=== PATIENT | female | born 1975 | race Hispanic/Latino ===

== ENCOUNTER 2017-05-11 11:38 | Emergency (ER) | payer SELFPAY ==
[2017-05-11] MEDS ORDERED: Ketorolac Tromethamine 30 MG/ML VIAL ONE (13:43)
[2017-05-11] MEDS ORDERED: Metoclopramide HCl 10 MG/2 ML VIAL ONE (13:43)
[2017-05-11 13:44] LABS: #Basophils 0.1 thou/uL (0.0-0.2); #Eosinphils 0.2 thou/uL (0.0-0.7); #Lymphocytes 3.4 thou/uL (1.20-3.40); #Monocytes 0.9 thou/uL (0.11-0.59); #Neutrophils 6.9 thou/uL (1.40-6.50); %Basophils 0.9 % (0.0-1.0); %Eosinophils 1.8 % (0.0-10.0); %Lymphocytes 29.3 % (21.0-51.0); %Monocytes 7.8 % (0.0-10.0); Hematocrit 39.9 % (36.0-47.0); Mean Platelet Volume 7.4 fL (7.4-10.4); Red Blood Cell (RBC) Count 4.48 mill/uL (4.20-5.40); White Blood Cell (WBC) Count 11.5 thou/uL (4.8-10.8)
[2017-05-11 14:20] LABS: Anion Gap 12 mmol/L (10-20); BUN (Urea Nitrogen) 12 mg/dL (7.0-18.7); Calc. Creatinine Clearance 0 mL/min (70-130); Calcium 9.4 mg/dL (7.8-10.44); Carbon Dioxide 24 mmol/L (22-29); Chloride 101 mmol/L (98-107); Estimated GFR-MDRD Greater than 90
== END 2017-05-11 15:26 | disposition home or self-care (01) ==
LOC: ERS 11:38
DX: R51 Headache (principal); E11.65 Type 2 diabetes mellitus with hyperglycemia; J45.909 Unspecified asthma, uncomplicated
CPT/HCPCS: 80048; 82010; 85025; 96365; 96375; J1885; J2765

== ENCOUNTER 2017-05-21 18:17 | Emergency (ER) | payer SELFPAY ==
[2017-05-21 18:50] LABS: #Basophils 0.1 thou/uL (0.0-0.2); #Eosinphils 0.5 thou/uL (0.0-0.7); #Monocytes 0.9 thou/uL (0.11-0.59); %Basophils 0.8 % (0.0-1.0); %Eosinophils 4.7 % (0.0-10.0); %Lymphocytes 28.4 % (21.0-51.0); %Monocytes 8.9 % (0.0-10.0); Mean Platelet Volume 7.4 fL (7.4-10.4); Red Blood Cell (RBC) Count 4.42 mill/uL (4.20-5.40); White Blood Cell (WBC) Count 10.6 thou/uL (4.8-10.8)
[2017-05-21 18:58] LABS: PTT 26.1 SEC (22.9-36.1); Prothrombin Time 13.2 SEC (12.0-14.7)
[2017-05-21] MEDS ORDERED: Nitroglycerin 2% Ointment 1 INCH/1 GM Packet ONE (18:58)
[2017-05-21 19:08] LABS: Troponin I Less than 0.010 ng/mL (< 0.028)
[2017-05-21 19:11] LABS: ALT (SGPT) 15 U/L (8-55); AST (SGOT) 12 U/L (5-34); Alkaline Phosphatase 60 U/L (40-150); Anion Gap 13 mmol/L (10-20); BUN (Urea Nitrogen) 9 mg/dL (7.0-18.7); Bilirubin, Total 0.3 mg/dL (0.2-1.2); CK (CPK) 43 U/L (29-168); Calc. Creatinine Clearance 0 mL/min (70-130); Calcium 8.9 mg/dL (7.8-10.44); Carbon Dioxide 20 mmol/L (22-29); Chloride 104 mmol/L (98-107); Estimated GFR-MDRD Greater than 90; Globulin 3.4 g/dL (2.4-3.5); Lipase 14 U/L (8-78); Protein, Total 7.1 g/dL (6.0-8.3)
--- NOTE | 2017-05-21 19:51 | RAD ---
AP VIEW OF THE CHEST 05/21/17 INDICATION: Shortness of breath and chest pain. IMPRESSION: No acute cardiopulmonary abnormality. The examination is not appreciably changed from the comparison dated 07/09/16. POS: [facility]
--- NOTE | 2017-07-11 12:08 | EKG ---
Test Reason : Blood Pressure : / mmHG Vent. Rate : 090 BPM Atrial Rate : 090 BPM P-R Int : 124 ms QRS Dur : 100 ms QT Int : 372 ms P-R-T Axes : 025 -37 000 degrees QTc Int : 455 ms Normal sinus rhythm Left axis deviation Abnormal ECG Confirmed by KAMALA BALLESTEROS MD ([id number]), newspaper editor managing HONORIO MAYA ([id number]) on 07/11/2017 12:08:01 PM Referred By: Confirmed By:KAMALA BALLESTEROS MD
== END 2017-05-21 19:59 | disposition home or self-care (01) ==
LOC: SCSER 18:17
DX: J11.1 Influenza due to unidentified influenza virus with other respiratory manifestations (principal); E11.9 Type 2 diabetes mellitus without complications; J45.909 Unspecified asthma, uncomplicated
CPT/HCPCS: 71010; 80053; 82550; 82553; 83690; 84484; 85025; 85610; 85730; 93005

== ENCOUNTER 2017-06-30 12:58 | Emergency (ER) | payer SELFPAY | END 2017-06-30 13:09 | disposition left against medical advice (07) | LOC: ERS 12:58 | DX: Z53.21 Procedure and treatment not carried out due to patient leaving prior to being seen by health care provider (principal) | CPT/HCPCS: 36416 ==

== ENCOUNTER 2017-06-30 17:05 | Emergency (ER) | payer SELFPAY | END 2017-06-30 19:47 | disposition home or self-care (01) | LOC: ERS 17:05 | DX: E11.65 Type 2 diabetes mellitus with hyperglycemia (principal); J45.909 Unspecified asthma, uncomplicated | CPT/HCPCS: 36416; 99284 ==

== ENCOUNTER 2017-07-18 20:27 | Emergency (ER) | payer SELFPAY ==
[2017-07-18] MEDS ORDERED: Acetaminophen 500 MG TAB ONE (21:03)
[2017-07-18] MEDS ORDERED: Ketorolac Tromethamine 30 MG/ML VIAL ONE (21:42)
[2017-07-18] MEDS ORDERED: Ondansetron HCl/PF 4 MG/2 ML Vial ONE (21:42)
[2017-07-18 22:01] LABS: #Eosinphils 0.3 thou/uL (0.0-0.7); #Lymphocytes 1.2 thou/uL (1.20-3.40); #Monocytes 0.9 thou/uL (0.11-0.59); #Neutrophils 5.4 thou/uL (1.40-6.50); %Basophils 0.3 % (0.0-1.0); %Eosinophils 3.3 % (0.0-10.0); %Lymphocytes 15.4 % (21.0-51.0); %Monocytes 11.9 % (0.0-10.0); Hemoglobin 11.9 g/dL (12.0-16.0); Mean Corpuscular HGB CONC 33.6 g/dL (32.0-36.0); Mean Corpuscular Hemoglobin 29.9 pg (27.0-31.0); Mean Platelet Volume 6.8 fL (7.4-10.4); Platelet Count 284 thou/uL (130-400); RBC Distribution Width 12.2 % (11.5-14.5); Red Blood Cell (RBC) Count 3.99 mill/uL (4.20-5.40); White Blood Cell (WBC) Count 7.8 thou/uL (4.8-10.8)
[2017-07-18 22:39] LABS: ALT (SGPT) 20 U/L (8-55); AST (SGOT) 23 U/L (5-34); Albumin 3.5 g/dL (3.5-5.0); Alkaline Phosphatase 54 U/L (40-150); Anion Gap 14 mmol/L (10-20); BUN (Urea Nitrogen) 11 mg/dL (7.0-18.7); Bilirubin, Total 0.3 mg/dL (0.2-1.2); CK (CPK) 47 U/L (29-168); Calc. Creatinine Clearance 0 mL/min (70-130); Calcium 8.8 mg/dL (7.8-10.44); Carbon Dioxide 20 mmol/L (22-29); Chloride 101 mmol/L (98-107); Estimated GFR-MDRD 90; Glucose 219 mg/dL (70-105); Lipase 12 U/L (8-78); Potassium 4.5 mmol/L (3.5-5.1); Protein, Total 7.5 g/dL (6.0-8.3); Sodium 130 mmol/L (136-145)
[2017-07-18 23:17] LABS: Bilirubin Negative (Negative); Blood, Urine Small (Negative); Clarity CLEAR (Clear); Glucose, Urine (Dipstick) >=1000 mg/dL (Negative); Leukocyte Negative (Negative); Nitrite Negative (Negative); Pregnancy Test - Urine (BHCG) Negative (Negative); Pregu Control Background? CLEAR/WHITE (CLR/WHITE); Pregu Control Bar Appear? YES (CONTROL BAR); Protein, Urine (Dipstick) Trace mg/dL (Neg-Trace); Specific Gravity 1.035 (1.002-1.036); Specific Gravity, Urine 1.035 (1.002-1.036)
[2017-07-18 23:18] LABS: Bacteria/HPF Rare-Few HPF (None Seen); Hyaline Casts/LPF 0-3 HYALINE CAST LPF (0-3 Hyaline); Pathc Cast-AUWi Flag 0.13 (0-2.49); WBC/HPF 0-3 HPF (0-3)
== END 2017-07-19 00:13 | disposition home or self-care (01) ==
LOC: ERS 20:27
DX: J11.1 Influenza due to unidentified influenza virus with other respiratory manifestations (principal); J45.909 Unspecified asthma, uncomplicated; E11.9 Type 2 diabetes mellitus without complications
CPT/HCPCS: 80053; 81003; 81015; 81025; 82010; 82550; 83690; 85025; 87804; 96361; 96374; 96375; J1885; J2405

== ENCOUNTER 2017-08-23 12:36 | Emergency (ER) | payer MEDICAID, SELFPAY ==
[2017-08-23] MEDS ORDERED: HYDROcodone/Acetaminophen 5/325 mg Tablet ONE (13:24)
== END 2017-08-23 13:32 | disposition home or self-care (01) ==
LOC: SCSER 12:36
DX: G89.29 Other chronic pain (principal); M54.5 Low back pain; E78.5 Hyperlipidemia, unspecified; E11.9 Type 2 diabetes mellitus without complications; J45.909 Unspecified asthma, uncomplicated; Z79.84 Long term (current) use of oral hypoglycemic drugs; Z79.899 Other long term (current) drug therapy
CPT/HCPCS: 99283

== ENCOUNTER 2017-12-29 18:00 | Emergency (ER) | payer SELFPAY ==
--- NOTE | 2017-12-29 18:51 | ULT ---
VENOUS DOPPLER ULTRASOUND OF THE LEFT LOWER EXTREMITY: 12/29/17 HISTORY: Left lower leg pain. TECHNIQUE: Hurst scale, color flow and spectral doppler imaging of the deep venous system of the left lower extre mity is performed. FINDINGS: There is good flow, compression, and augmentation noted in the left common femoral, femoral, deep fem oral, popliteal, posterior tibial, and greater saphenous veins. IMPRESSION: No evidence of DVT in the left lower extremity. POS: [facility]
[2017-12-29] MEDS ORDERED: HYDROcodone/Acetaminophen 10/325 mg Tablet ONE (18:55)
== END 2017-12-29 20:05 | disposition home or self-care (01) ==
LOC: ERS 18:00
DX: M79.662 Pain in left lower leg (principal); E78.5 Hyperlipidemia, unspecified; E11.9 Type 2 diabetes mellitus without complications; J45.909 Unspecified asthma, uncomplicated; Z79.84 Long term (current) use of oral hypoglycemic drugs

== ENCOUNTER 2018-03-18 10:00 | Inpatient (IN) | payer OTHER ==
[2018-03-18 13:33] VITALS: BMI 38.6
[2018-03-23] MEDS ORDERED: Lidocaine 0.5%/Epinephrine 1:200,000 50 ml Vial ONE (06:29)
[2018-03-23] MEDS ORDERED: Bupivacaine HCl 0.5%/Epinephrine 1:200,000/PF 30 ml Vial ONE (06:29)
[2018-03-23] MEDS ORDERED: CEFAZOLIN/Water 2 GM/20 ML SYRINGE ONE (06:53)
[2018-03-23] MEDS ORDERED: CeleCOXIB 100 MG CAP ONE (06:53)
[2018-03-23] MEDS ORDERED: Gabapentin 300 MG CAP ONE (06:53)
[2018-03-23] MEDS ORDERED: Famotidine/PF 20 mg/2ml Vial ONE (06:53)
[2018-03-23] MEDS ORDERED: Midazolam HCl 2 mg/2 ml Vial ONE ×2 (07:04→07:17)
[2018-03-23] MEDS ORDERED: Fentanyl 100 MCG/2 ML VIAL ONE (07:04)
[2018-03-23] MEDS ORDERED: HYDROmorphone 2 MG/ML VIAL ONE (07:04)
[2018-03-23] MEDS ORDERED: Promethazine HCl 25 MG/ML VIAL ONE (07:05)
[2018-03-23] MEDS ORDERED: Insulin Regular 300 UNITS/3 ML VIAL ONE ×2 (07:24→07:26)
[2018-03-23] MEDS ORDERED: Lidocaine 1% w/Epinephrine 1:100K 30 ML VIAL ONE (09:17)
[2018-03-23] MEDS ORDERED: Morphine 4 MG/ML VIAL SLOW IVP PRN (10:37)
[2018-03-23] MEDS ORDERED: Zolpidem Tartrate 5 MG TAB PO PRN (10:37)
[2018-03-23] MEDS ORDERED: Ondansetron HCl/PF 4 MG/2 ML Vial IVP PRN (10:37)
[2018-03-23] MEDS ORDERED: Bisacodyl 10 MG SUPP PR PRN (10:37)
[2018-03-23] MEDS ORDERED: Dextrose 5% in Water 1,000 ML IV PRN (10:37)
[2018-03-23] MEDS ORDERED: diphenhydrAMINE 25 MG CAP PO PRN (10:37)
[2018-03-23] MEDS ORDERED: Dextrose 50% Abboject 50 ML SYRINGE SLOW IVP PRN (10:37)
[2018-03-23] MEDS ORDERED: Promethazine HCl 25 MG/ML VIAL IM PRN (10:37)
[2018-03-23] MEDS ORDERED: traMADol HCl 50 MG TAB PO PRN (10:37)
[2018-03-23] MEDS: Lactated Ringer's 1,000 ML IV SCH (12:16)
[2018-03-23] MEDS: Ketorolac Tromethamine 30 MG/ML VIAL IVP SCH ×3 (12:38→23:33)
[2018-03-23] MEDS: HumaLOG 300 UNITS/3 ML VIAL SC PRN ×3 (12:38→21:36)
[2018-03-23] MEDS ORDERED: Glycopyrrolate 0.2 MG/ML 5 ML SYRINGE ONE (13:37)
[2018-03-23] MEDS ORDERED: PHENYLEPHRINE-NS 100 MCG/ML 10 ML SYRINGE ONE (13:37)
[2018-03-23] MEDS ORDERED: Ondansetron HCl/PF 4 MG/2 ML Vial ONE (13:37)
[2018-03-23] MEDS ORDERED: ePHEDrine/0.9% NaCl/PF SYRINGE 50 mg/10 ml ONE (13:37)
[2018-03-23] MEDS ORDERED: Metoprolol Tartrate 5 MG/5 ML VIAL ONE (13:37)
[2018-03-23] MEDS ORDERED: Dexamethasone 20 MG/5 ML VIAL ONE (13:37)
[2018-03-23] MEDS ORDERED: PROPOFOL 200 MG/20 ML VIAL ONE (13:37)
[2018-03-23] MEDS ORDERED: Lidocaine 1% PF 5 ML VIAL ONE (13:37)
--- NOTE | 2018-03-23 13:42 | OP ---
DATE OF OPERATION: 03/23/2018 PREOPERATIVE DIAGNOSES: 1. Menorrhagia. 2. Dysmenorrhea. 3. Endometrial mass. 4. Incomplete uterovaginal prolapse. 5. Rectocele. POSTOPERATIVE DIAGNOSES: 1. Menorrhagia. 2. Dysmenorrhea. 3. Endometrial mass. 4. Incomplete uterovaginal prolapse. 5. Rectocele. PROCEDURE: Robotic assisted total laparoscopic hysterectomy, bilateral salpingectomy, vaginal vault suspension, posterior colporrhaphy and cystoscopy. ATTENDING SURGEON: Nadeen Marcelo M.D. BEHAVIORAL SCIENCES INSTRUCTOR: Dorothea Garcia M.D. ANESTHESIA: General endotracheal. ESTIMATED BLOOD LOSS: 100 mL. INTRAVENOUS FLUIDS: 1200 mL crystalloid. URINE OUTPUT: 250 mL of clear urine. COMPLICATIONS: None. DRAINS: Rm catheter. PATHOLOGY: Uterus, cervix, bilateral fallopian tubes. FINDINGS: A mobile 12-week sized uterus sounded to 10 cm. No uterine masses on intraabdominal surve y. The cervix were normal appearing, fallopian tubes and ovaries were normal appearing bilaterally. On cystoscopy, there were no intravesicular masses, lacerations or suture material. The ureters wer e noted to efflux vigorously bilaterally. The urethra was noted to be within normal limits. OPERATIVE TECHNIQUE: The patient was taken to the operating room where general anesthesia was obtain ed without difficulty. The patient was prepped and draped in a sterile fashion in the dorsal lithoto my position. A Rm catheter was placed in the bladder. A speculum was placed in the vagina and th e anterior lip of the cervix was grasped with a single tooth tenaculum. The uterus then sounded to 1 0 cm and the REVA manipulator was assembled with a 10 cm tip and a 4 cm colpotomizer ring. The manip ulator tip was inserted to the uterine fundus. The balloon was inflated. Instruments were removed o ut of the vagina and the colpotomizer ring was advanced to fit snugly around the cervix and the vagin al occluder balloon was inflated. Legs were placed in low lithotomy. Attention was turned to the ab domen. 0.5% Marcaine with epinephrine was infiltrated into the umbilicus, a 12 mm skin incision was made in the umbilicus. Veress needle was passed into the abdomen initially noting opening pressures. Second and third attempts were performed with increased abdominal wall tenting. The patient had a t hick anterior abdominal wall. On the third pass of the Veress needle the opening pressure was noted to be 4 mmHg and pneumoperitoneum was obtained without difficulty at that time. The 12 mm trocar wa s passed into the abdomen and confirmed placement with the robotic camera. Steep Trendelenburg was o btained. The right and left 8 mm lower quadrant robotic trocars were placed after infiltrating with 0.5% Marcaine with epinephrine under direct visualization. A left upper quadrant and 11 mm transportation assistant port was also placed under direct visualization after infiltrating with 0.5% Marcaine with epinephri ne. The robot was then docked, the right robotic arm contained monopolar scissors, left robotic arm contained a fenestrated bipolar. The surgeon console then took control and the right fallopian tube was grasped and elevated. The mes osalpinx was cauterized with the fenestrated and transected with the scissors. At that time, the pne umoperitoneum was being lost. The gas was noted to slip off of the trocar. However, the trocar had also slid out of the fascia. At that time, the instruments were removed out of the abdomen. The cam era was removed out of the abdomen as well and the camera port was undocked. It was noted that the p ort was slightly too short for docking and due to the width of the anterior abdominal wall, therefore , the longer trocar was placed and a 5 mm camera was assembled and the trocar placement was observed directly using the camera through the transportation assistant port and the camera was then redocked and replaced b ack into the abdomen. At that time, the remainder of the mesosalpinx was cauterized and transected u ntil the medial portion was met. This was clamped across, cauterized, transected and removed out of the abdomen. The utero-ovarian was cauterized x2 widths of the fenestrated and then transected with the scissors and cautery and transection was carried down to the level of the mid round ligament. Th e round ligament was cauterized, transected and opened up the anterior and posterior leaf of the broa d ligament. The posterior leaf of the broad ligament was undermined and dropped down to the level of the uterosacral. The anterior leaf of the broad ligament was also incised down to the level of the bladder flap. The retroperitoneum was then dissected off of the vessels laterally and the vessels we re skeletonized with the scissors on cautery. The bladder flap was then created and the vesicouterin e peritoneum was incised and the adventitial fibers were dissected off bluntly with the back end of t he scissors as well as sharply with the scissors on cautery. Attention was turned to the patient's l eft side where the left fallopian tube was grasped and elevated. The mesosalpinx was cauterized and transected sequentially until the medial portion was met. The fallopian tube was then clamped across in the medial portion and cauterized and transected and removed out of the abdomen. The utero-ovari an was cauterized x2 with of the fenestrated and transected in the midportion with the scissors. Thi s cautery and transected was sequentially carried down to the mid portion of the round ligament and t he mesovarium was incised. The round ligament was cauterized and transected and the posterior leaf w as dropped down after undermining with the fenestrated. The anterior leaf of the broad ligament was also dropped down to the level of the incision from the contralateral side. The retroperitoneum was dissected through to allow the ureter to drop away and the vessels to be skeletonized and adequately visualized. At that time, the pubocervical fascia was scored with the scissors and further dissectio n of the bladder down below the level of the colpotomizer and was performed until the bladder was rosita en down below the level of the colpotomizer ring. The anterior colpotomy was then performed and chaudhry ied around to the vascular pedicles. The posterior colpotomy was also performed. At that time, the right uterine artery was clamped and cauterized multiple times and then it was incised. Several oozi ng edges on the vaginal cuff were also cauterized with the fenestrated. The left uterine pedicle was then clamped and cauterized and incised and hemostasis was noted. The uterus was then removed into the vagina. Irrigation of the cuff was performed and hemostasis was achieved with the fenestrated. The scissors were traded out for the needle pizza delivery driver and the cuff was closed with a #2-0 barbed Strataf ix suture in a running fashion incorporating vaginal mucosa in each bite and posterior peritoneum. T his was run back for several sutures and closure was noted to be excellent. At that time, the uterus was then used to manipulate the top of the vaginal cuff and highlight the uterosacral ligaments. On ce these were identified an 0 Ethibond was used to plicate the uterosacral ligaments with one stitch through the distal two-thirds, middle two-thirds and then through the anterior and the posterior vagi nal cuff incorporating the pubocervical fascia. This was then tied down and taut. This was performe d bilaterally and plication was noted to be excellent. The ureters were noted during this time later al to the uterosacral suspension and the releasing incisions previously made in the case were to prev ent kinking of the ureters. At that time, irrigation was again performed, low pressure check was per formed. Hemostasis was noted to be excellent. All instruments were removed out of the abdomen. The fascia of the umbilical port was closed with an 0 Vicryl in [id number] fashion. The skin was c losed with 4-0 Monocryl in a subcuticular fashion. Dermabond was applied. Attention was turned to t he vagina where the Rm catheter was removed out of the bladder. The 70 degree cystoscope was asse mbled and inserted into the bladder, immediately noting there were no foreign objects, masses or any trauma or laceration to the bladder. The ureters, immediately were noted to efflux bilaterally direc tly observing both the right and left ureters effluxing clear urine. The cystoscope was then removed and the Rm catheter was replaced. The cystocele had resolved with the vault suspension and there fore the posterior colporrhaphy was begun. The introitus was grasped with Allis clamps at approximat wendy 4 and 7 o'clock and the posterior vaginal mucosa was infiltrated with 1% lidocaine with epinephri ne. The Metzenbaums were used to incise the introitus and undermine the vaginal mucosa posteriorly a nd then incise in the midline. Allis clamps were placed on the incision edges on both sides and used to pull traction. The Metzenbaums were then used to dissect the rectovaginal fascia off of the vagi nal mucosa as well as a fluffed out Ray-Reinaldo bluntly. Hemostasis was achieved with the Bovie. A rect al exam was performed and fascial defects were noted and grasped with Allis clamps. These fascial de fects were then approximated with a 2-0 Vicryl in a [id number] fashion and the fascia was plicat ed in the midline along the entire length of the rectocele to reinforce support over the rectal wall. At that time, perineorrhaphy was also performed and this included using the Bovie to incise on the perineum and remove some of the skin. The superficial transverse perineal muscles were then plicated in the midline with 2-0 Vicryl in a U-stitch. The vaginal mucosal incision was then closed with an 0 Vicryl in a nqgboq-ob-wiltu fashion with excellent hemostasis noted. Vaginal packing was placed an d all instruments were removed out of the vagina. The patient tolerated procedure well. Sponge, lap and needle counts were correct x2. The patient was taken to recovery in stable condition. Patient received Ancef 2 grams prior to the procedure.
[2018-03-23] MEDS: Simethicone Chewable 80 MG TAB PO PRN (13:52)
[2018-03-23] MEDS: traMADol HCl 50 MG TAB PO PRN (13:52)
[2018-03-23] MEDS: Acetaminophen 1,000 MG in Premix Bag 1 BAG IVPB SCH ×3 (15:07→21:27)
[2018-03-23] MEDS: metFORMIN 500 MG TAB PO SCH (16:11)
[2018-03-23] MEDS: Docusate Calcium (SURFAK) 240 MG CAP PO SCH (21:27)
[2018-03-23] MEDS: Gabapentin 300 MG CAP PO SCH (21:27)
[2018-03-24] MEDS: Lactated Ringer's 1,000 ML IV SCH (01:20)
[2018-03-24] MEDS: traMADol HCl 50 MG TAB PO PRN ×2 (03:43→11:48)
[2018-03-24] MEDS: Acetaminophen 1,000 MG in Premix Bag 1 BAG IVPB SCH (03:44)
[2018-03-24] MEDS: Ketorolac Tromethamine 30 MG/ML VIAL IVP SCH (06:06)
[2018-03-24 06:22] LABS: Hemoglobin 10.8 g/dL (12.0-16.0); Mean Corpuscular HGB CONC 33.1 g/dL (32.0-36.0); Mean Corpuscular Hemoglobin 29.2 pg (27.0-31.0); Mean Corpuscular Volume 88.4 fL (78.0-98.0); Mean Platelet Volume 7.5 fL (7.4-10.4); Platelet Count 286 thou/uL (130-400); RBC Distribution Width 12.6 % (11.5-14.5)
[2018-03-24] MEDS ORDERED: Ibuprofen 800 MG TAB PO SCH (07:00)
[2018-03-24] MEDS ORDERED: Glimepiride 1 MG TAB PO SCH (10:45)
[2018-03-24] MEDS: Gabapentin 300 MG CAP PO SCH ×2 (11:48→20:43)
[2018-03-24] MEDS: Docusate Calcium (SURFAK) 240 MG CAP PO SCH ×2 (11:49→20:44)
[2018-03-24] MEDS: metFORMIN 500 MG TAB PO SCH ×2 (11:53→20:43)
[2018-03-24] MEDS: Ibuprofen 800 MG TAB PO SCH ×2 (15:32→23:56)
[2018-03-24] MEDS: Glimepiride 1 MG TAB PO SCH (15:33)
[2018-03-24] MEDS: Acetaminophen 500 MG TAB PO SCH ×2 (15:45→19:46)
[2018-03-24] MEDS ORDERED: HYDROcodone/Acetaminophen 5/325 mg Tablet PO PRN ×2 (17:26→17:27)
--- NOTE | 2018-03-24 22:27 | PRG ---
DATE OF SERVICE: 03/24/2018 TIME OF VISIT: 0800 a.m. SUBJECTIVE: Patient reports pain is controlled this morning currently, 5/10 has tolerated tramadol i n overnight received IV Ofirmev and Toradol. She is tolerating a regular diet. She has yet to ambul ate or void. She denies any nausea, vomiting, shortness of breath, or chest pain. OBJECTIVE: VITAL SIGNS: Temperature 97.6, pulse 72, respirations 20, blood pressure 137/84, pulse ox 99% on charity m air. GENERAL: No acute distress. HEART: Regular rate and rhythm. LUNGS: Clear to auscultation bilaterally. ABDOMEN: Soft, nondistended, appropriately tender. Incisions clean, dry, and intact. EXTREMITIES: No edema, cyanosis, or clubbing. LABORATORY DATA: Hemoglobin 10.8, hematocrit 32.7, platelets 286. Accu-Cheks 317, 325, 219, 335. ASSESSMENT AND PLAN: This is a 42-year-old status post robotic-assisted total laparoscopic hysterect yazmin, vaginal-vault suspension, posterior colporrhaphy, and cystoscopy. Postoperative day #1, patient 's vital signs are within normal limits. She is afebrile. This morning, she will have voiding trial to ensure adequate bladder emptying. Her vaginal packing is out. Her pain is being managed on tram adol and IV Toradol and Ofirmev. She will be transitioned to p.o. Motrin, p.o. Tylenol, and tramadol . She is to ambulate in home and instructed on deep breathing exercises as well as an incentive spir ometer. Later in the day, the nurses called at approximately 1600 stating the patient's pain was unc ontrolled with the current medications and her blood sugar was elevated in the 300s. She was started on glimepiride in addition to her home metformin, as her sliding scale was discontinued in preparati on for discharge. We will monitor the patient overnight in terms of pain control and blood sugars an d likely discharge in the morning. She did pass her second-voiding trial and has had adequate urine output.
[2018-03-25] MEDS: Acetaminophen 500 MG TAB PO SCH ×3 (01:57→14:49)
[2018-03-25] MEDS: Glimepiride 1 MG TAB PO SCH ×2 (09:00→09:01)
[2018-03-25] MEDS: Ibuprofen 800 MG TAB PO SCH ×2 (09:01→14:48)
[2018-03-25] MEDS: Docusate Calcium (SURFAK) 240 MG CAP PO SCH (09:01)
[2018-03-25] MEDS: metFORMIN 500 MG TAB PO SCH (09:01)
[2018-03-25] MEDS: traMADol HCl 50 MG TAB PO PRN ×2 (09:04→14:48)
[2018-03-25] MEDS: Simethicone Chewable 80 MG TAB PO PRN (09:05)
[2018-03-25] MEDS ORDERED: Glimepiride 1 MG TAB PO SCH (10:10)
[2018-03-25] MEDS: Gabapentin 300 MG CAP PO SCH (14:47)
[2018-03-25 16:38] VITALS: BP 151/74; TEMP 97.5
--- NOTE | 2018-03-26 13:01 | DIS ---
DATE OF ADMISSION: 03/23/2018 DATE OF DISCHARGE: 03/25/2018 ADMISSION DIAGNOSES: 1. Pelvic pain. 2. Menorrhagia. 3. Pelvic organ prolapse. 4. Type 2 diabetes, uncontrolled. 5. Morbid obesity. DISCHARGE DIAGNOSES: Status post robotic-assisted total laparoscopic hysterectomy, vaginal vault leroy pension, posterior colporrhaphy, and cystoscopy; type 2 diabetes, uncontrolled; morbid obesity. DISCHARGE CONDITION: Stable. ATTENDING PHYSICIAN: Nadeen Marcelo MD CONSULTATIONS: None. PROCEDURES: Please see discharge diagnoses. HISTORY AND PHYSICAL: Please see previously dictated H&P. HOSPITAL COURSE: A 42-year-old presented to the hospital to undergo scheduled surgery as listed abov e. The patient had an uncomplicated surgery with an estimated blood loss of 100 mL. Postoperatively , she went to the floor with Rm catheter and vaginal packing in place. She was able to tolerate a regular diet on postoperative day 0. Her pain was initially controlled on IV Toradol and Ofirmev an d p.r.n. tramadol. She was transitioned to oral medications on postoperative day 1 including ibuprof en, Tylenol, and tramadol. Her pain was somewhat uncontrolled later in the day on postoperative day 1 and she was given a dose of Assumption, which helped. She did not require any further Assumption doses and c ontinued the tramadol. She had a voiding trial on postoperative day 1, where her bladder was backfil led and she was allowed to void; however, the patient did not immediately get up and voided several h ours after this backfilling, and she was in retention of over 400 mL of urine on her postvoid residua l. Therefore, she was allowed another attempt at voiding and postvoid residual, which the amount was approximately 150. This was performed once again on the 3rd void, and the amount was around the yuni e and retention of less than 30% of total volume was noted. Therefore, the catheter remained out and the patient felt that she was emptying her bladder completely. Her vaginal packing was removed. Fernie jacobsen only had vaginal spotting and she was explained this was normal. She had postoperative hemoglobin of 10.8, hematocrit 32.7; had no symptoms of anemia. Her vital signs are within normal limits. Her blood sugars were uncontrolled and on initial presentation to day surgery was in the 300s. She was i nitially managed with a sliding scale and then restarted on her home metformin. The patient has diff iculty obtaining care and being seen at [facility]; however, since her blood sugars were uncontro lled and we were wanting to control them better secondary to risk for postoperative complications, fernie jacobsen was started on glimepiride 1 mg during her hospital stay. This did improve her blood sugars and he r fasting on postoperative day 2 was 189. She will continue this on discharge. She had no nausea, v omiting. She was able to ambulate without difficulty. Her pain was controlled on postoperative day 2 and she was dispositioned for home at that time. Her final pathology is pending at the time of dis charge and she was given discharge medications including tramadol, ibuprofen, glimepiride, and metfor min. She will follow up with me in 2 weeks postoperative time.
== END 2018-03-25 17:48 | disposition home or self-care (01) | DRG 743 ==
LOC: SURG A 03-23 06:09 → 3SE 03-23 11:25
PROVIDERS: ADMIT Student in an Organized Health Care Education/Training Program; ATTEND Student in an Organized Health Care Education/Training Program
PROC: 0UT94ZZ Resection of Uterus, Percutaneous Endoscopic Approach (ICD-10-PCS; principal; 2018-03-23)
PROC: 0UT74ZZ Resection of Bilateral Fallopian Tubes, Percutaneous Endoscopic Approach (ICD-10-PCS; 2018-03-23)
PROC: 8E0W4CZ Robotic Assisted Procedure of Trunk Region, Percutaneous Endoscopic Approach (ICD-10-PCS; 2018-03-23)
PROC: 0JQC3ZZ Repair Pelvic Region Subcutaneous Tissue and Fascia, Percutaneous Approach (ICD-10-PCS; 2018-03-23)
DX: N92.0 Excessive and frequent menstruation with regular cycle (principal); N85.8 Other specified noninflammatory disorders of uterus; N81.4 Uterovaginal prolapse, unspecified; N81.10 Cystocele, unspecified; N81.6 Rectocele; N94.6 Dysmenorrhea, unspecified; N81.2 Incomplete uterovaginal prolapse
CPT/HCPCS: 36415; 36416; 85027; 88307; J0131; J0670; J1100; J1170; J1815; J1885; J2001; J2250; J2405; J2550; J2704; J3010; S0028

== ENCOUNTER 2018-03-18 12:40 | Outpatient (CLI) | payer OTHER ==
[2018-03-18 15:21] LABS: BHCG - Serum Negative (NEGATIVE); Hemoglobin 12.5 g/dL (12.0-16.0); Mean Corpuscular HGB CONC 34.2 g/dL (32.0-36.0); Mean Corpuscular Hemoglobin 29.6 pg (27.0-31.0); Mean Corpuscular Volume 86.7 fL (78.0-98.0); Mean Platelet Volume 7.1 fL (7.4-10.4); Platelet Count 278 thou/uL (130-400); Pregs Control Background? CLEAR/WHITE (CLR/WHITE); Pregs Control Bar Appear? YES (CONTROL BAR); RBC Distribution Width 12.6 % (11.5-14.5); Red Blood Cell (RBC) Count 4.23 mill/uL (4.20-5.40); White Blood Cell (WBC) Count 9.8 thou/uL (4.8-10.8)
[2018-03-18 15:38] LABS: Anion Gap 13 mmol/L (10-20); BUN (Urea Nitrogen) 11 mg/dL (7.0-18.7); Calc. Creatinine Clearance 0 mL/min (70-130); Calcium 8.5 mg/dL (7.8-10.44); Carbon Dioxide 19 mmol/L (22-29); Chloride 106 mmol/L (98-107); Estimated GFR-MDRD 90; Glucose 249 mg/dL (70-105); Potassium 3.9 mmol/L (3.5-5.1); Sodium 134 mmol/L (136-145)
== END 2018-03-18 12:41 | disposition home or self-care (01) ==
LOC: LABBT 12:40
PROVIDERS: ATTEND Student in an Organized Health Care Education/Training Program
DX: Z01.812 Encounter for preprocedural laboratory examination (principal); N92.1 Excessive and frequent menstruation with irregular cycle; N81.4 Uterovaginal prolapse, unspecified
CPT/HCPCS: 80048; 84703; 85027; 86850; 86900; 86901

== ENCOUNTER 2018-05-03 18:11 | Emergency (ER) | payer SELFPAY ==
[2018-05-03] MEDS ORDERED: Metoclopramide HCl 10 MG/2 ML VIAL ONE (19:24)
[2018-05-03] MEDS ORDERED: Ketorolac Tromethamine 30 MG/ML VIAL ONE (19:24)
[2018-05-03] MEDS ORDERED: diphenhydrAMINE 12.5 MG/5 ML UDCUP ONE (19:24)
[2018-05-03] MEDS ORDERED: diphenhydrAMINE 50 MG/ML VIAL IVP ONE (19:45)
[2018-05-03] MEDS ORDERED: Magnesium 2 GM/50 ML BAG (IN WATER) ONE (20:36)
[2018-05-03] MEDS ORDERED: methylPREDNISolone Sod Succ/PF 125 MG/2 ML VIAL ONE (20:36)
[2018-05-03] MEDS ORDERED: Water For Inject, Bacteriostat 30 ML ONE (20:37)
== END 2018-05-03 21:42 | disposition home or self-care (01) ==
LOC: ERS 18:11
DX: R51 Headache (principal); E78.5 Hyperlipidemia, unspecified; E11.9 Type 2 diabetes mellitus without complications; J45.909 Unspecified asthma, uncomplicated; Z79.84 Long term (current) use of oral hypoglycemic drugs; Z79.899 Other long term (current) drug therapy
CPT/HCPCS: 96365; 96366; 96375; J1200; J1885; J2765; J2930

== ENCOUNTER 2018-06-19 06:24 | Emergency (ER) | payer SELFPAY ==
--- NOTE | 2018-06-19 07:48 | RAD ---
RIGHT SHOULDER 3 VIEWS: Date: 06/19/18 INDICATION: 42-year-old female with history of trauma, status post mechanical fall. COMPARISON: None. IMPRESSION: No acute fracture or subluxation. Visualized right lung is clear. POS: [facility]
--- NOTE | 2018-06-19 07:55 | RAD ---
RIGHT ELBOW 2 VIEWS: Date: 06/19/18 INDICATION: History of mechanical fall with right elbow pain; trauma. IMPRESSION: No acute fracture or subluxation is evident. No joint capsular distention is noted. Radiocapitellar a lignment appears within normal limits. POS: [facility]
== END 2018-06-19 07:32 | disposition home or self-care (01) ==
LOC: ERS 06:24
DX: M79.605 Pain in left leg (principal); M79.601 Pain in right arm; E11.9 Type 2 diabetes mellitus without complications; E78.5 Hyperlipidemia, unspecified; J45.909 Unspecified asthma, uncomplicated; F17.200 Nicotine dependence, unspecified, uncomplicated; Z79.84 Long term (current) use of oral hypoglycemic drugs; W18.2XXA Fall in (into) shower or empty bathtub, initial encounter

== ENCOUNTER 2018-06-29 17:37 | Emergency (ER) | payer SELFPAY ==
[2018-06-29 18:24] LABS: Bilirubin Negative (Negative); Blood, Urine Negative (Negative); Clarity CLEAR (Clear); Glucose, Urine (Dipstick) >=1000 mg/dL (Negative); Leukocyte Negative (Negative); Nitrite Negative (Negative); Protein, Urine (Dipstick) Negative (Neg-Trace); Specific Gravity, Urine 1.043 (1.002-1.036); Urobilinogen 0.2 mg/dL (0.2-1.0); pH, Urine 5.5 (5.0-9.0)
[2018-06-29 18:32] LABS: #Basophils 0.1 thou/uL (0.0-0.2); #Eosinphils 0.4 thou/uL (0.0-0.7); #Lymphocytes 3.8 thou/uL (1.20-3.40); #Monocytes 0.9 thou/uL (0.11-0.59); #Neutrophils 8.4 thou/uL (1.40-6.50); %Basophils 0.5 % (0.0-1.0); %Lymphocytes 27.9 % (21.0-51.0); %Monocytes 6.8 % (0.0-10.0); %Neutrophils 61.9 % (42.0-75.0); Hemoglobin 12.3 g/dL (12.0-16.0); Mean Corpuscular HGB CONC 32.7 g/dL (32.0-36.0); Mean Corpuscular Hemoglobin 27.3 pg (27.0-31.0); Mean Corpuscular Volume 83.5 fL (78.0-98.0); Mean Platelet Volume 7.6 fL (7.4-10.4); Platelet Count 314 thou/uL (130-400); RBC Distribution Width 13.4 % (11.5-14.5); Red Blood Cell (RBC) Count 4.49 mill/uL (4.20-5.40); White Blood Cell (WBC) Count 13.6 thou/uL (4.8-10.8)
[2018-06-29] MEDS ORDERED: Ketorolac Tromethamine 30 MG/ML VIAL ONE (18:52)
[2018-06-29 18:53] LABS: ALT (SGPT) 11 U/L (8-55); AST (SGOT) 12 U/L (5-34); Albumin 3.2 g/dL (3.5-5.0); Alkaline Phosphatase 63 U/L (40-150); Anion Gap 13 mmol/L (10-20); BUN (Urea Nitrogen) 15 mg/dL (7.0-18.7); Bilirubin, Total 0.2 mg/dL (0.2-1.2); Calc. Creatinine Clearance 0 mL/min (70-130); Calcium 8.7 mg/dL (7.8-10.44); Carbon Dioxide 19 mmol/L (22-29); Chloride 103 mmol/L (98-107); Estimated GFR-MDRD Greater than 90; Globulin 3.5 g/dL (2.4-3.5); Glucose 322 mg/dL (70-105); Magnesium 1.6 mg/dL (1.6-2.6); Potassium 4.1 mmol/L (3.5-5.1); Protein, Total 6.7 g/dL (6.0-8.3); Sodium 131 mmol/L (136-145)
[2018-06-29] MEDS ORDERED: Clindamycin/D5W 900 mg/50 ml Premix Bag ONE (19:06)
[2018-06-29] MEDS ORDERED: Clindamycin/D5W 600 mg/50 ml Premix Bag ONE (19:09)
--- NOTE | 2018-06-29 21:01 | RAD ---
CHEST ONE VIEW: 06/29/18 HISTORY: 42-year-old female with history of abscess to right labia for four days. COMPARISON: 05/21/17. Heart size is normal. The lungs are clear. IMPRESSION: No acute intrathoracic disease. Stable from prior study. POS: [facility]
--- NOTE | 2018-07-03 13:40 | EKG ---
Test Reason : Blood Pressure : / mmHG Vent. Rate : 106 BPM Atrial Rate : 106 BPM P-R Int : 140 ms QRS Dur : 106 ms QT Int : 362 ms P-R-T Axes : 043 -42 002 degrees QTc Int : 480 ms Sinus tachycardia Left axis deviation Septal infarct , age undetermined Abnormal ECG Confirmed by DIONNA AYERS DO ([id number]), publishing editor THOMPSON CRUM ([id number]) on 07/03/2018 1:39:36 PM Referred By: Confirmed By:DIONNA AYERS DO
== END 2018-06-29 20:19 | disposition home or self-care (01) ==
LOC: ERS 17:37
DX: N76.4 Abscess of vulva (principal); E11.65 Type 2 diabetes mellitus with hyperglycemia; E78.5 Hyperlipidemia, unspecified; Z79.84 Long term (current) use of oral hypoglycemic drugs; J45.909 Unspecified asthma, uncomplicated
CPT/HCPCS: 36416; 71045; 80053; 81003; 82010; 83605; 83735; 85025; 87040; 87077; 87086; 93005; 96361; 96365; 96375; J1885; J3490

== ENCOUNTER 2018-07-07 09:45 | Emergency (ER) | payer SELFPAY ==
[2018-07-07] MEDS ORDERED: Lidocaine 1% w/Epinephrine 1:100K 20 ML VIAL ONE (10:19)
[2018-07-07] MEDS ORDERED: cefTRIAXone\\ROCEPHIN 2 GM VIAL ONE (10:19)
[2018-07-07 10:43] LABS: #Eosinphils 0.3 thou/uL (0.0-0.7); #Lymphocytes 2.6 thou/uL (1.20-3.40); #Monocytes 0.6 thou/uL (0.11-0.59); #Neutrophils 4.6 thou/uL (1.40-6.50); %Basophils 0.6 % (0.0-1.0); %Eosinophils 3.5 % (0.0-10.0); %Lymphocytes 31.9 % (21.0-51.0); %Monocytes 7.1 % (0.0-10.0); Hemoglobin 11.7 g/dL (12.0-16.0); Mean Corpuscular HGB CONC 32.2 g/dL (32.0-36.0); Mean Corpuscular Hemoglobin 27.2 pg (27.0-31.0); Mean Corpuscular Volume 84.5 fL (78.0-98.0); Mean Platelet Volume 7.3 fL (7.4-10.4); Platelet Count 333 thou/uL (130-400); RBC Distribution Width 13.5 % (11.5-14.5)
[2018-07-07] MEDS ORDERED: Bacitracin Zinc 1 Packet ONE (10:47)
[2018-07-07 11:10] LABS: ALT (SGPT) 15 U/L (8-55); AST (SGOT) 13 U/L (5-34); Albumin 3.3 g/dL (3.5-5.0); Alkaline Phosphatase 55 U/L (40-150); Anion Gap 12 mmol/L (10-20); BUN (Urea Nitrogen) 11 mg/dL (7.0-18.7); Bilirubin, Total 0.4 mg/dL (0.2-1.2); Calc. Creatinine Clearance 0 mL/min (70-130); Calcium 8.5 mg/dL (7.8-10.44); Carbon Dioxide 20 mmol/L (22-29); Chloride 105 mmol/L (98-107); Estimated GFR-MDRD Greater than 90; Globulin 3.5 g/dL (2.4-3.5); Glucose 243 mg/dL (70-105); Potassium 3.9 mmol/L (3.5-5.1); Protein, Total 6.8 g/dL (6.0-8.3)
[2018-07-07] MEDS ORDERED: Vancomycin HCl 1.5 GM in Sodium Chloride 0.9% 250 ML 300 ML IVPB SCH (11:30)
[2018-07-07 11:37] LABS: Sodium 133 mmol/L (136-145)
== END 2018-07-07 13:15 | disposition home or self-care (01) ==
LOC: ERS 09:45
DX: L02.211 Cutaneous abscess of abdominal wall (principal); L03.311 Cellulitis of abdominal wall; E78.5 Hyperlipidemia, unspecified; E11.9 Type 2 diabetes mellitus without complications; J45.909 Unspecified asthma, uncomplicated; Z79.84 Long term (current) use of oral hypoglycemic drugs
CPT/HCPCS: 10061; 36415; 80053; 85025; 87040; 87070; 87077; 87205; 96365; 96366; 96367; J0696; J2001; J3370; J7050

== ENCOUNTER 2018-09-21 08:35 | Observation (INO) | payer SELFPAY ==
[2018-09-21 09:08] LABS: #Basophils 0.1 thou/uL (0.0-0.2); #Eosinphils 0.4 thou/uL (0.0-0.7); #Monocytes 0.7 thou/uL (0.11-0.59); #Neutrophils 5.6 thou/uL (1.40-6.50); %Eosinophils 4.2 % (0.0-10.0); %Lymphocytes 30.6 % (21.0-51.0); %Monocytes 7.3 % (0.0-10.0); %Neutrophils 56.9 % (42.0-75.0); Hemoglobin 12.2 g/dL (12.0-16.0); Mean Corpuscular HGB CONC 31.8 g/dL (32.0-36.0); Mean Corpuscular Hemoglobin 27.6 pg (27.0-31.0); Mean Corpuscular Volume 86.7 fL (78.0-98.0); Mean Platelet Volume 7.4 fL (7.4-10.4); Platelet Count 265 thou/uL (130-400); RBC Distribution Width 13.3 % (11.5-14.5); Red Blood Cell (RBC) Count 4.42 mill/uL (4.20-5.40); White Blood Cell (WBC) Count 9.9 thou/uL (4.8-10.8)
[2018-09-21 09:38] LABS: ALT (SGPT) 14 U/L (8-55); AST (SGOT) 12 U/L (5-34); Albumin 3.5 g/dL (3.5-5.0); Alkaline Phosphatase 47 U/L (40-150); Anion Gap 12 mmol/L (10-20); BUN (Urea Nitrogen) 8 mg/dL (7.0-18.7); Bilirubin, Total 0.5 mg/dL (0.2-1.2); Calc. Creatinine Clearance 0 mL/min (70-130); Calcium 8.7 mg/dL (7.8-10.44); Carbon Dioxide 21 mmol/L (22-29); Chloride 103 mmol/L (98-107); Estimated GFR-MDRD Greater than 90; Globulin 2.7 g/dL (2.4-3.5); Glucose 277 mg/dL (70-105); Lipase 14 U/L (8-78); Potassium 4.2 mmol/L (3.5-5.1); Protein, Total 6.2 g/dL (6.0-8.3); Sodium 132 mmol/L (136-145)
--- NOTE | 2018-09-21 09:39 | RAD ---
CHEST ONE VIEW: HISTORY: Dyspnea. Chest pain. COMPARISON: 06/29/2018 FINDINGS: The cardiac silhouette is magnified by projection. The pulmonary vasculature is unremarkable. The m ediastinum is midline. No lobar consolidation or evidence of pneumothorax. IMPRESSION: No active cardiopulmonary abnormalities are demonstrated. POS: [facility]
[2018-09-21] MEDS ORDERED: Pantoprazole 40 MG VIAL ONE (09:41)
[2018-09-21] MEDS ORDERED: Nitroglycerin 0.4 MG TAB 1 EACH ONE (09:41)
[2018-09-21] MEDS ORDERED: Aspirin Chewable 81 MG TAB ONE (10:07)
[2018-09-21] MEDS ORDERED: Nitroglycerin 2% Ointment 1 INCH/1 GM Packet ONE (10:10)
[2018-09-21] MEDS ORDERED: Dextrose 5% in Water 1,000 ML IV PRN (10:35)
[2018-09-21] MEDS ORDERED: Acetaminophen 325 MG TAB PO PRN (10:35)
[2018-09-21] MEDS ORDERED: Zolpidem Tartrate 5 MG TAB PO PRN (10:35)
[2018-09-21] MEDS ORDERED: HumaLOG 300 UNITS/3 ML VIAL SC PRN (10:35)
[2018-09-21] MEDS ORDERED: Dextrose 50% Abboject 50 ML SYRINGE SLOW IVP PRN (10:35)
[2018-09-21] MEDS ORDERED: Nitroglycerin 0.4 MG TAB (25 Tab Bottle) PO PRN (10:35)
[2018-09-21] MEDS ORDERED: Ondansetron ODT 4 MG TAB PO PRN (10:35)
[2018-09-21 11:04] LABS: Hemoglobin A1c 11.3 % (4.0-6.0)
--- NOTE | 2018-09-21 11:11 | HP ---
[facility] by [facility] Department for chest pain. HISTORY OF PRESENT ILLNESS: The patient presents with sharp substernal chest pain, that is also burning for 24 hours. She has had some minor symptoms before. No nausea or vomiting. She states she did have a sweat last night, some radiation to her right arm, some mild shortness of breath, some palpitations yesterday. PAST MEDICAL HISTORY: Diabetes mellitus, type 2, on metformin a 1000 mg twice a day and glipizide 10 mg once a day. ALLERGIES: NO KNOWN DRUG ALLERGIES. PAST SURGICAL HISTORY: Hysterectomy. FAMILY HISTORY: Mother and father had diabetes. Mother, father, and grandparents had coronary artery disease. Mother at 49 of heart disease. SOCIAL HISTORY: . at bedside. Full code status. is surrogate decision maker. Nontobacco user. Nonalcohol user. REVIEW OF SYSTEMS: HEENT: No headaches, dizziness, or fainting. Eyes, some blurred vision. No double vision or flashing lights. Ear, nose, and throat; no ear pain or drainage. No nasal bleeding. No oral pain. No trouble swallowing. CARDIAC: See present illness. No pressure. Chest pain and orthopnea. No paroxysmal nocturnal dyspnea. RESPIRATORY: Some mild dyspnea on exertion. Occasional cough and sneezing. No wheezing or asthma. GASTROINTESTINAL: No nausea, vomiting, abdominal pain, diarrhea, or constipation. GENITOURINARY: No hematuria or dysuria. MUSCULOSKELETAL: No pain or swelling in her arms or legs. NEUROLOGIC: No strokes, seizures, or focal weakness. PSYCHIATRIC: No anxiety or depression. SKIN: No bruising, bleeding, or rash. HEME/LYMPH: No tender or swollen lymph nodes in the axilla, inguinal, or cervical area. No petechial hemorrhage. No bruising or rash on her arms or legs. PHYSICAL EXAMINATION: GENERAL: Alert, oriented, cooperative, and pleasant lady. VITAL SIGNS: Blood pressure 125/74, pulse 75, respirations 18, and room air sat 95%. The patient is in no discomfort despite the ER sheet showing 8/10 pain. HEAD, EYES, EARS, NOSE, AND THROAT: Pupils are equal, round, and reactive to light. Extraocular movements are intact. Sclerae are white. Tympanic membranes clear. Nose clear. Oral mucous membranes are wet. Dental hygiene is good. NECK: No jugular venous distention, adenopathy, or thyromegaly. CHEST: Clear to auscultation and percussion. HEART: Regular rate and rhythm. First and second heart sounds are clear. There are no appreciated murmurs or gallops. ABDOMEN: Soft. Bowel sounds are normal. No hepatosplenomegaly. No mass. No rebound or bruits. EXTREMITIES: Reveal no cyanosis, clubbing, or edema. PULSES: Carotid, radial, femoral, and dorsalis pedis pulses are intact. SKIN: Warm and dry without bruises or rash. HEME/LYMPH: No tender or swollen lymph nodes in the axilla, inguinal, or cervical area. No petechial hemorrhages in her nail beds or mucous membranes. NEUROLOGIC: Cranial nerves 2 through 12 are intact. Deep tendon reflexes symmetric. Moves all extremities. IMAGING STUDIES: EKG: Regular sinus rhythm, Q-wave in V2; otherwise, normal, reviewed by me. Chest x-ray: No cardiomegaly, CHF, or infiltrate, reviewed by me. LABORATORY DATA: Initial troponin normal. Comprehensive metabolic profile: Blood sugar 277 and sodium 132; otherwise, unremarkable. CBCs normal. ADMITTING DIAGNOSIS: Chest pain, most consistent with gastroesophageal reflux disease. PLAN: However, since the patient has a markedly positive family history including a mother who at 49, we will proceed with serial enzymes, aspirin, and a stress test. Metformin will be held. The patient will be monitored with Accu-Cheks and sliding scale while she is here. Job ID: [id number]
[2018-09-21 16:06] VITALS: BP 124/76; TEMP 98; BMI 38.5
--- NOTE | 2018-09-21 16:24 | NM ---
RADIONUCLIDE STRESS ONLY MYOCARDIAL PERFUSION SCAN WITH CT ATTENUATION CORRECTION AND SPECT IMAGING: LEFT VENTRICULAR WALL MOTION EVALUATION AND EJECTION FRACTION: HISTORY: Chest pain. FINDINGS: Jeremiah protocol. Test time: 5:00 Maximum heart rate 169 beats per minute. There is homogeneous uptake of radiotracer throughout the left ventricular myocardium. No focal perf usion defect. QGS analysis of gated SPECT images show no focal wall motion abnormalities. LHR 44%. Ejection fraction calculated at 58%. IMPRESSION: 1. Normal myocardial perfusion scan. 2. Normal left ventricular ejection fraction. POS: [facility]
[2018-09-21] MEDS ORDERED: Famotidine/PF 20 mg/2ml Vial SLOW IVP SCH (21:00)
--- NOTE | 2018-09-22 07:12 | DIS ---
DATE OF ADMISSION: 09/21/2018 DATE OF DISCHARGE: 09/21/2018 PRIMARY CARE PROVIDER: Candida. FINAL DIAGNOSES: Noncardiac chest discomfort and diabetes mellitus type 2, uncontrolled. DISCHARGE MEDICINES: Same as her home medicines. 1. Metformin 1000 mg twice a day. 2. Glipizide 10 mg a day. ALLERGIES: NO KNOWN DRUG ALLERGIES. PENDING AT TIME OF DISCHARGE: Nothing. CODE STATUS: Full. HOSPITAL COURSE: The patient presented with symptomatology characteristic of heartburn, referred to [facility] by [facility] for chest pain, rule out UT. The patient's EKG showed no acute ST-T segment changes. CBC was unremarkable. Comprehensive metabolic profile showed only a blood sugar of 277, hemoglobin A1c of 11.3. Cardiac enzymes were normal. Cardiac stress test was done, which shows no ischemia. No consultations or procedures were done. The patient is being discharged to the care of healthcare provider. She needs to be further worked up for evaluation for change in therapy as her blood sugars are elevated. Her hemoglobin A1c is 11.3, indicating poor control of her diabetes. She has been advised to use Maalox for heartburn type symptoms. She had been told to see her PCP in 7 days. Job ID: [id number]
[2018-09-22] MEDS ORDERED: Enoxaparin Sodium 40 MG/0.4 ML SYRINGE SC SCH (09:00)
[2018-09-22] MEDS ORDERED: Aspirin 325 mg Enteric Coated Tablet PO SCH (09:00)
--- NOTE | 2018-09-25 20:33 | EKG ---
Test Reason : Blood Pressure : / mmHG Vent. Rate : 082 BPM Atrial Rate : 082 BPM P-R Int : 132 ms QRS Dur : 102 ms QT Int : 406 ms P-R-T Axes : 000 -41 -10 degrees QTc Int : 474 ms Normal sinus rhythm Left axis deviation Septal infarct , age undetermined Abnormal ECG Confirmed by TINA HAY, CHONG ([id number]), newspaper editor managing HONORIO MAYA ([id number]) on 09/25/2018 8:32:42 PM Referred By: Confirmed By:CHONG WILDER MD
== END 2018-09-21 17:57 | disposition home or self-care (01) ==
LOC: ERS 08:35 → ERHOLD 10:30 → 2SW 13:07
PROVIDERS: ADMIT Internal Medicine; ATTEND Internal Medicine
DX: R07.89 Other chest pain (principal); E11.9 Type 2 diabetes mellitus without complications; Z79.84 Long term (current) use of oral hypoglycemic drugs
CPT/HCPCS: 36415; 71045; 78452; 80053; 83036; 83690; 84484; 85025; 85379; 93005; 93017; 96361; 96374; A9500; C9113; G0378

== ENCOUNTER 2018-11-21 10:16 | Emergency (ER) | payer SELFPAY ==
--- NOTE | 2018-11-21 11:12 | RAD ---
EXAM: Two views chest PROVIDED CLINICAL HISTORY: Cough COMPARISON: None FINDINGS: Cardiac and mediastinal silhouette appears within normal limits. Lungs appear free of significant opa city. No pleural fluid or pneumothorax apparent. IMPRESSION: No evidence for an acute cardiopulmonary process.
== END 2018-11-21 11:32 | disposition home or self-care (01) ==
LOC: ERS 10:16
DX: J45.909 Unspecified asthma, uncomplicated (principal); J01.90 Acute sinusitis, unspecified; E78.5 Hyperlipidemia, unspecified; E11.9 Type 2 diabetes mellitus without complications; Z79.84 Long term (current) use of oral hypoglycemic drugs
CPT/HCPCS: 71046

== ENCOUNTER 2019-01-18 18:25 | Emergency (ER) | payer SELFPAY ==
[~2019-01-18 18:25] MED LIST: ISOVUE-370 76%-LOCM 1 ML ONE
[2019-01-18] MEDS ORDERED: Ondansetron ODT 4 MG TAB ONE (18:59)
[2019-01-18 19:25] LABS: Bilirubin Small (Negative); Blood, Urine Negative (Negative); Glucose, Urine (Dipstick) 500 mg/dL (Negative); Leukocyte Negative (Negative); Nitrite Negative (Negative); Protein, Urine (Dipstick) > or equal to 300 mg/dL (Neg-Trace); Urobilinogen 0.2 mg/dL (Less than 2)
[2019-01-18 19:27] LABS: Clarity Hazy (Clear)
[2019-01-18 19:38] LABS: #Eosinphils 0.3 thou/uL (0.0-0.7); #Lymphocytes 1.3 thou/uL (1.20-3.40); #Monocytes 0.5 thou/uL (0.11-0.59); #Neutrophils 5.6 thou/uL (1.40-6.50); %Basophils 0.1 % (0.0-1.0); %Eosinophils 3.9 % (0.0-10.0); %Lymphocytes 16.5 % (21.0-51.0); %Monocytes 6.5 % (0.0-10.0); Hemoglobin 14.2 g/dL (12.0-16.0); Mean Corpuscular HGB CONC 33.7 g/dL (32.0-36.0); Mean Corpuscular Hemoglobin 30.1 pg (27.0-31.0); Mean Corpuscular Volume 89.2 fL (78.0-98.0); Mean Platelet Volume 7.5 fL (7.4-10.4); Platelet Count 293 thou/uL (130-400); RBC Distribution Width 12.5 % (11.5-14.5); Red Blood Cell (RBC) Count 4.72 mill/uL (4.20-5.40); White Blood Cell (WBC) Count 7.7 thou/uL (4.8-10.8)
[2019-01-18 19:44] LABS: Bacteria/HPF 1+ HPF (None Seen); RBC/HPF 0-3 HPF (0-3)
[2019-01-18 19:45] LABS: Trichomonas/HPF 1+ HPF (None Seen)
[2019-01-18 19:55] LABS: ALT (SGPT) 22 U/L (8-55); AST (SGOT) 14 U/L (5-34); Albumin 3.8 g/dL (3.5-5.0); Alkaline Phosphatase 55 U/L (40-150); Anion Gap 14 mmol/L (10-20); BUN (Urea Nitrogen) 12 mg/dL (7.0-18.7); Bilirubin, Total 0.8 mg/dL (0.2-1.2); Calc. Creatinine Clearance 0 mL/min (70-130); Calcium 8.5 mg/dL (7.8-10.44); Carbon Dioxide 22 mmol/L (22-29); Chloride 102 mmol/L (98-107); Estimated GFR-MDRD 85; Globulin 3.3 g/dL (2.4-3.5); Glucose 246 mg/dL (70-105); Lipase 15 U/L (8-78); Protein, Total 7.1 g/dL (6.0-8.3); Sodium 134 mmol/L (136-145)
[2019-01-18] MEDS ORDERED: Morphine 4 MG/ML VIAL ONE (20:44)
--- NOTE | 2019-01-18 21:12 | CT ---
CT Abdomen Pelvis W Con: 01/18/2019 8:35 PM CLINICAL INFORMATION: Sudden onset of left-sided abdominal pain COMPARISON: 08/05/2013 TECHNIQUE: Multiple contiguous axial images were obtained and a CT of the abdomen and pelvis with IV contrast. C oronal reformats were performed. FINDINGS: Lower Chest: within normal limits. Abdomen: Liver: within normal limits. Bile Ducts: Normal caliber. Gallbladder: Surgically absent Pancreas: within normal limits. Spleen: within normal limits. Adrenals: within normal limits. Kidneys: within normal limits. Pelvis: Reproductive Organs: Status post hysterectomy Ureters: within normal limits. Bladder: within normal limits. Peritoneum: No ascites or free air, no fluid collection. Bowel: Normal caliber. Mesentery and Retroperitoneum: No enlarged mesenteric or retroperitoneal lymph nodes. Vessels: Normal. Abdominal Wall: within normal limits. Bones: Within normal limits IMPRESSION: No evidence of acute intraabdominal\pelvic abnormality.
[2019-01-18] MEDS ORDERED: Mag-Al 1200 mg/1200 mg/30 ML UDCUP ONE (21:38)
[2019-01-18] MEDS ORDERED: Lidocaine Viscous Sol 2% 15 ml UD Cup ONE (21:38)
[2019-01-18] MEDS ORDERED: Ketorolac Tromethamine 30 MG/ML VIAL ONE (22:18)
== END 2019-01-18 23:30 | disposition home or self-care (01) ==
LOC: ERS 18:25
DX: R10.11 Right upper quadrant pain (principal); E11.9 Type 2 diabetes mellitus without complications; Z79.84 Long term (current) use of oral hypoglycemic drugs
CPT/HCPCS: 36415; 74177; 80053; 81003; 81015; 83690; 84484; 85025; 93005; 96361; 96374; 96375; J1885; J2270; Q0162; Q9966

== ENCOUNTER 2019-02-08 15:33 | Observation (INO) | payer SELFPAY ==
[2019-02-08] MEDS ORDERED: Morphine 4 MG/ML VIAL ONE ×2 (16:20→18:33)
[2019-02-08] MEDS ORDERED: Lidocaine 4% Cream 5 GM TUBE w/ Tegaderm ONE (16:20)
[2019-02-08] MEDS ORDERED: Piperacillin/Tazobactam 4.5 GM VIAL ONE (16:20)
[2019-02-08 16:27] LABS: #Basophils 0.1 thou/uL (0.0-0.2); #Eosinphils 0.3 thou/uL (0.0-0.7); #Lymphocytes 2.6 thou/uL (1.20-3.40); #Monocytes 0.7 thou/uL (0.11-0.59); #Neutrophils 6.8 thou/uL (1.40-6.50); %Basophils 0.8 % (0.0-1.0); %Eosinophils 3.1 % (0.0-10.0); %Lymphocytes 25.1 % (21.0-51.0); %Monocytes 6.6 % (0.0-10.0); %Neutrophils 64.4 % (42.0-75.0); Hemoglobin 12.1 g/dL (12.0-16.0); Mean Corpuscular HGB CONC 32.4 g/dL (32.0-36.0); Mean Corpuscular Hemoglobin 29.2 pg (27.0-31.0); Mean Corpuscular Volume 89.9 fL (78.0-98.0); Mean Platelet Volume 7.3 fL (7.4-10.4); Platelet Count 303 thou/uL (130-400); RBC Distribution Width 12.6 % (11.5-14.5); Red Blood Cell (RBC) Count 4.16 mill/uL (4.20-5.40); White Blood Cell (WBC) Count 10.5 thou/uL (4.8-10.8)
[2019-02-08 16:41] LABS: ALT (SGPT) 17 U/L (8-55); AST (SGOT) 11 U/L (5-34); Albumin 3.6 g/dL (3.5-5.0); Alkaline Phosphatase 57 U/L (40-150); Anion Gap 13 mmol/L (10-20); BUN (Urea Nitrogen) 11 mg/dL (7.0-18.7); Bilirubin, Total 0.6 mg/dL (0.2-1.2); Calc. Creatinine Clearance 0 mL/min (70-130); Calcium 8.6 mg/dL (7.8-10.44); Carbon Dioxide 20 mmol/L (22-29); Chloride 103 mmol/L (98-107); Estimated GFR-MDRD Greater than 90; Globulin 3.5 g/dL (2.4-3.5); Glucose 365 mg/dL (70-105); Potassium 3.7 mmol/L (3.5-5.1); Protein, Total 7.1 g/dL (6.0-8.3); Sodium 132 mmol/L (136-145)
[2019-02-08 16:45] LABS: Bilirubin Negative (Negative); Blood, Urine Negative (Negative); Clarity Cloudy (Clear); Glucose, Urine (Dipstick) >=1000 mg/dL (Negative); Leukocyte Negative (Negative); Nitrite Negative (Negative); Protein, Urine (Dipstick) Negative (Neg-Trace); Urobilinogen 0.2 mg/dL (Less than 2)
[2019-02-08] MEDS ORDERED: Insulin Regular 300 UNITS/3 ML VIAL ONE (18:33)
[2019-02-08] MEDS ORDERED: Ondansetron ODT 4 MG TAB SL PRN (19:57)
[2019-02-08] MEDS ORDERED: Sodium Chloride 0.9% 1,000 ML IV SCH (19:57)
[2019-02-08] MEDS ORDERED: Acetaminophen 325 MG TAB PO PRN (19:57)
[2019-02-08] MEDS ORDERED: Ondansetron PF 4 MG/2 ML Vial IVP PRN (19:57)
[2019-02-08] MEDS ORDERED: HYDROcodone/Acetaminophen 5/325 mg Tablet PO PRN (19:57)
[2019-02-08 20:38] LABS: Lactic Acid 1.6 mmol/L (0.5-2.2)
[2019-02-08] MEDS: HYDROcodone/Acetaminophen 5/325 mg Tablet PO PRN (21:38)
[2019-02-08 22:18] VITALS: BMI 37.9
[2019-02-09] MEDS: Piperacillin/Tazobactam 4.5 GM in Sodium Chloride 0.9% 100 ML IVPB SCH ×5 (00:13→23:39)
[2019-02-09] MEDS ORDERED: Acetaminophen 325 MG TAB PO PRN (03:09)
[2019-02-09] MEDS ORDERED: Acetaminophen 650 MG Suppository PR PRN (03:09)
[2019-02-09] MEDS ORDERED: Ondansetron PF 4 MG/2 ML Vial IVP PRN (03:09)
[2019-02-09] MEDS ORDERED: Ondansetron ODT 4 MG TAB PO PRN (03:09)
[2019-02-09] MEDS ORDERED: Dextrose 5% in Water 1,000 ML IV PRN (03:10)
[2019-02-09] MEDS ORDERED: Dextrose 50% Abboject 50 ML SYRINGE SLOW IVP PRN (03:10)
[2019-02-09] MEDS ORDERED: HumaLOG 300 UNITS/3 ML VIAL SC PRN (03:10)
[2019-02-09] MEDS: Sodium Chloride 0.9% 1,000 ML IV SCH (03:42)
[2019-02-09] MEDS: HYDROcodone/Acetaminophen 5/325 mg Tablet PO PRN (03:42)
--- NOTE | 2019-02-09 05:26 | PDOC.FPRHP ---
- History of Present Illness Chief Complaint: Right face swelling History of Present Illness: Patient presents with swelling to right face that started 3 days ago. She states she thought it was a pimple but it continued to get larger and the swelling extending to the right side of her face from TMJ down to the right side of her neck. In the ED they tried to aspirate but only a little blood came out. She has had fevers for the last couple of days. Denies any difficulty swallowing. No pain in her teeth or gums. No tongue swelling. No difficulty breathing. No neck stiffness. - Allergies/Adverse Reactions Allergies Allergy/AdvReac Type Severity Reaction Status Date / Time No Known Allergies Allergy Verified 02/08/19 22:12 - Home Medications Medication Instructions Recorded Confirmed Type metFORMIN HCl [Metformin HCl] 1,000 mg PO BID 03/18/18 02/08/19 History Aspirin [Ecotrin] 81 mg PO DAILY 02/08/19 02/08/19 History - History PMHx: PSHx: FHx: Social: - Vital signs BP: [] HR: [] RR: [] Tmax: [] Pox: []% on [] Wt: [] FMR H&P: Results - Labs Result Diagrams: 02/08/19 16:14 02/08/19 16:14 Lab results: WBC 10.5 thou/uL (4.8-10.8) 02/08/19 16:14 Hgb 12.1 g/dL (12.0-16.0) 02/08/19 16:14 Hct 37.4 % (36.0-47.0) 02/08/19 16:14 MCV 89.9 fL (78.0-98.0) 02/08/19 16:14 Plt Count 303 thou/uL (130-400) 02/08/19 16:14 Neutrophils % 64.4 % (42.0-75.0) 02/08/19 16:14 Sodium 132 mmol/L (136-145) L 02/08/19 16:14 Potassium 3.7 mmol/L (3.5-5.1) 02/08/19 16:14 Chloride 103 mmol/L (98-107) 02/08/19 16:14 Carbon Dioxide 20 mmol/L (22-29) L 02/08/19 16:14 BUN 11 mg/dL (7.0-18.7) 02/08/19 16:14 Creatinine 0.70 mg/dL (0.6-1.1) 02/08/19 16:14 Glucose 365 mg/dL (70-105) H 02/08/19 16:14 Lactic Acid 1.6 mmol/L (0.5-2.2) 02/08/19 20:15 Calcium 8.6 mg/dL (7.8-10.44) 02/08/19 16:14 Total Bilirubin 0.6 mg/dL (0.2-1.2) 02/08/19 16:14 AST 11 U/L (5-34) 02/08/19 16:14 ALT 17 U/L (8-55) 02/08/19 16:14 Alkaline Phosphatase 57 U/L (40-150) 02/08/19 16:14 Serum Total Protein 7.1 g/dL (6.0-8.3) 02/08/19 16:14 Albumin 3.6 g/dL (3.5-5.0) 02/08/19 16:14 Urine Ketones Trace mg/dL (Negative) A 02/08/19 16:35 Urine Blood Negative (Negative) 02/08/19 16:35 Urine Nitrite Negative (Negative) 02/08/19 16:35 Ur Leukocyte Esterase Negative (Negative) 02/08/19 16:35 FMR H&P: Upper Level - Plan Date/Time: 02/09/19 0524 I, [], have evaluated this patient and agree with findings/plan as outlined by communications intern resident. Pertinent changes/additions are listed here.
--- NOTE | 2019-02-09 05:38 | PDOC.EVN ---
Event Note - Event Note Event Note: Chief Complaint: Right face swelling History of Present Illness: Patient presents with swelling to right face that started 3 days ago. She states she thought it was a pimple but it continued to get larger and the swelling extending to the right side of her face from TMJ down to the right side of her neck. In the ED they tried to aspirate but only a little blood came out. She has had fevers for the last couple of days. Denies any difficulty swallowing. No pain in her teeth or gums. No tongue swelling. No difficulty breathing. No neck stiffness. Lactic acid elevated at 2. Started on IV Antibiotics. Review of Systems: All other review of systems apart from those mentioned in HPI are negative. NO KNOWN DRUG ALLERGIES. Home Medications: PMHx: 1. Diabetes mellitus 2. Obese. 3. Hyperlipidemia. 4. Asthma. PSHx: 1. Appendectomy. 2. Cholecsystectomy. 3. Hysterectomy. Social Hx: Nonsmoker, no alcohol or drug use. - Vital signs Stable. - Physical Exam Constitutional: NAD, awake, alert and oriented, well developed HEENT: normocephalic and atraumatic, PERRLA, EOMI, no scleral icterus, normal nasal mucosa, MMM, oropharynx clear Right face notable for firm nodule over right cheek, very tender. No discharge/ bleeding. Neck: supple, right sided swelling. Tender to palpation. Chest: no-tender to palpation Heart: RRR, normal S1/S2, pulses present, no edema Lungs: CTAB, no respiratory distress, good air movement, no rales/rhonchi, no wheezing, no retractions Abdomen: soft, non-tender, bowel sounds present, no masses/distention Musculoskeletal: normal structure, normal tone, ROM grossly normal Neurological: no focal deficit, CN II-XII intact Skin: no rash/lesions, good turgor Psychiatric: normal mood and affect, good judgment and insight Labs reviewed. Impression/Plan: 1. Right face cellulitis. Continue IV Antibiotics. CT Neck Soft Tissue, given swelling and pain in right side of neck. 2. Diabetes Mellitus. Resume home meds and monitor glucose. ISS. 3. GI Prophylaxis. 4. DVT Prophylaxis. Mechanical SCDs. Patient ambulatory. 5. FULL CODE STATUS. Case discussed with Dr. Abbott who agrees with plan as above.
[2019-02-09 05:45] LABS: #Eosinphils 0.3 thou/uL (0.0-0.7); #Lymphocytes 2.5 thou/uL (1.20-3.40); #Monocytes 0.7 thou/uL (0.11-0.59); #Neutrophils 4.3 thou/uL (1.40-6.50); %Basophils 0.6 % (0.0-1.0); %Eosinophils 4.2 % (0.0-10.0); %Lymphocytes 32.2 % (21.0-51.0); %Monocytes 8.3 % (0.0-10.0); %Neutrophils 54.7 % (42.0-75.0); Hemoglobin 10.7 g/dL (12.0-16.0); Mean Corpuscular HGB CONC 31.3 g/dL (32.0-36.0); Mean Corpuscular Hemoglobin 28.4 pg (27.0-31.0); Mean Corpuscular Volume 90.7 fL (78.0-98.0); Mean Platelet Volume 7.5 fL (7.4-10.4); Platelet Count 307 thou/uL (130-400); RBC Distribution Width 12.2 % (11.5-14.5); Red Blood Cell (RBC) Count 3.75 mill/uL (4.20-5.40); White Blood Cell (WBC) Count 7.8 thou/uL (4.8-10.8)
[2019-02-09 06:07] LABS: Anion Gap 9 mmol/L (10-20); BUN (Urea Nitrogen) 11 mg/dL (7.0-18.7); Calc. Creatinine Clearance 207 mL/min (70-130); Calcium 8.8 mg/dL (7.8-10.44); Carbon Dioxide 22 mmol/L (22-29); Chloride 105 mmol/L (98-107); Estimated GFR-MDRD Greater than 90; Glucose 273 mg/dL (70-105); Sodium 132 mmol/L (136-145)
[2019-02-09] MEDS: Aspirin 81 mg Enteric Coated Tablet PO SCH (08:07)
[2019-02-09] MEDS: Famotidine/PF 20 mg/2ml Vial SLOW IVP SCH ×2 (08:07→20:51)
[2019-02-09] MEDS: metFORMIN 500 MG TAB PO SCH ×2 (08:07→16:08)
[2019-02-09] MEDS: traMADol HCl 50 MG TAB PO PRN ×4 (08:10→20:48)
--- NOTE | 2019-02-09 09:37 | CT ---
CT NECK SOFT TISSUES WITH AND WITHOUT CONTRAST: Date: 02/09/19 HISTORY: 43-year-old female with facial swelling extending down to right neck. FINDINGS: There is soft tissue thickening and fat stranding at the right buccal space extending into the superf icial subcutaneous fat and involving skin thickening, on the right. No periapical cyst identified inv olving right-sided upper and lower teeth. No adjacent periostitis or destructive osseous lesion invol ving right side of mandible or maxilla. Unrelated to this, there is a prominent periapical lucency around the root of the contralateral left most posterior molar tooth. There is additional lucency at the base of the crown of that tooth repres enting caries. There is thickening of the upper right platysma muscle. There is an enlarged, reactive, approximately 1.5 x 1.5 x 1 cm right Level IB submandibular lymph node. Mildly enlarged right Level II multiple ce rvical lymph nodes. To a lesser degree, slightly enlarged contralateral left Level II cervical lymph nodes. Thyroid gland is diffusely mildly enlarged, without evidence of discrete mass. The adenoids and palat ine tonsils are hyperplastic. Normal larynx. Other than the lymph nodes described above, no other abn ormality is identified involving the submandibular, retropharyngeal, parapharyngeal, perivertebral, p osterior cervical, operations liaison, parotid, carotid, and sublingual, spaces. Lung apices are grossly nirmal r. IMPRESSION: 1. Soft tissue thickening and adjacent fat stranding involving the right side of the face, from the right buccal space to the adjacent skin surface, and associated mild reactive lymphadenopathy. The ed wendy suggests that this is of an infectious/inflammatory nature. If symptoms do not resolve by 3 month s, follow up CT is recommended. 2. No evidence of abscess. 3. Unrelated incidental finding of caries and periapical (radicular) osseous lucency involving contr alateral left lower last molar tooth. POS: [facility]
[2019-02-09] MEDS ORDERED: ISOVUE-370 76%-LOCM 1 ML ONE (11:01)
[2019-02-09] MEDS: HumaLOG 300 UNITS/3 ML VIAL SC PRN ×2 (12:14→16:08)
--- NOTE | 2019-02-09 14:56 | PRG ---
DATE OF SERVICE: 02/09/2019 SUBJECTIVE: The patient is seen and examined at the bedside. She still has a lot of swelling and pain in her right cheek. OBJECTIVE: VITAL SIGNS: Blood pressure is 141/81, pulse is 81, temperature is 97.6, maximal temperature is 97.8, respiratory rate is 16, and O2 saturation is 99% on room air. HEENT: Head is atraumatic and normocephalic. Eyes are PERRLA. Sclerae are nonicteric. Right cheek is swollen and very tender to palpation. There is induration in the midportion of the cheek, more to the front with some scab on the top of it. Oral mucosa is moist. NECK: Supple. Lymphadenopathy present on the right side of the neck, superficial. LUNGS: Clear. HEART: S1 and S2, normal. ABDOMEN: Soft, obese, and nontender. EXTREMITIES: No clubbing, cyanosis, or edema. NEUROLOGIC: She is alert and oriented x4. There are no any sensory or motor deficits present. LABORATORY DATA: Labs showed white count of 7.8, hemoglobin 10.7, hematocrit 34.1, and platelet count is 307,000. Sodium of 132, potassium 4.0, chloride 105, CO2 of 22, BUN 11, creatinine 0.64, glucose is ranging from 256 to 365. Lactic acid is down to 1.68. Calcium 8.8. Microbiology; two blood cultures came back negative. CT soft tissue of the neck showed soft tissue thickening and adjacent fat stranding involving the right side of the face from the right buccal space to the adjacent skin surface and associated mild reactive lymphadenopathy. There is no evidence of abscess. Also, there was unrelated incidental finding of caries and periapical radicular osseous lucency involving contralateral left lower last molar tooth. IMPRESSION: 1. Right face cellulitis. The patient is an on Zosyn and vancomycin, we will continue those two. 2. Diabetes mellitus. PLAN: Continue her IV antibiotics. Continue pain management. Continue Accu-Cheks and coverage with sliding scale. Job ID: [id number]
[2019-02-09] MEDS ORDERED: Piperacillin/Tazobactam 4.5 GM in Sodium Chloride 0.9% 100 ML IVPB SCH (18:00)
[2019-02-09] MEDS: Vancomycin HCl 1 GM in Premix Bag 1 BAG IVPB SCH (20:51)
[2019-02-10] MEDS: traMADol HCl 50 MG TAB PO PRN ×2 (04:31→09:53)
[2019-02-10] MEDS: Piperacillin/Tazobactam 4.5 GM in Sodium Chloride 0.9% 100 ML IVPB SCH ×2 (06:05→11:30)
--- NOTE | 2019-02-10 07:36 | PDOC.HOSPP ---
- Subjective Subjective: no fever, erythema face improved , still has painfull area lateral to lips on R - Objective Vital Signs & Weight: Vital Signs (12 hours) Temp Pulse Resp BP BP Pulse Ox 02/10/19 04:00 98.4 F 79 16 129/67 97 02/10/19 00:00 98.2 F 87 16 121/67 121/67 97 02/09/19 20:00 98.0 F 81 18 141/74 H 98 Weight Admit Weight 249 lb 9.012 oz Weight 249 lb 9.012 oz I&O: 02/09/19 02/10/19 02/11/19 06:59 06:59 06:59 Intake Total 340 2585 Balance 340 2585 Result Diagrams: 02/09/19 04:19 02/09/19 04:19 Additional Labs: Accuchecks 02/10/19 02/09/19 02/09/19 05:03 20:29 15:41 POC Glucose 196 H 189 H 200 H 02/09/19 12:00 POC Glucose 249 H ROS - Review of Systems All systems: All other ROS were reviewed and found negative. - Medication Medications: Active Medications Generic Name Dose Route Start Last Admin Trade Name Freq PRN Reason Stop Dose Admin Acetaminophen 650 mg 02/09/19 03:09 02/09/19 12:56 Tylenol PO 650 mg Q4H PRN Administration Headache/Fever/Mild Pain (1-3) Aspirin 81 mg 02/09/19 09:00 02/09/19 08:07 Ecotrin PO 81 mg DAILY CYNTHIA Administration Famotidine 20 mg 02/09/19 09:00 02/09/19 20:51 Pepcid SLOW IVP 20 mg Q12HR CYNTHIA Administration Sodium Chloride 1,000 mls @ 65 mls/hr 02/09/19 03:30 02/09/19 03:42 Normal Saline 0.9% IV 1,000 mls .[id number] CYNTHIA Administration Piperacillin Sod/Tazobactam 100 mls @ 200 mls/hr 02/09/19 12:00 02/10/19 06: 05 Sod 4.5 gm/ Sodium Chloride IVPB 100 mls Q6HR CYNTHIA Administration Vancomycin HCl 1 gm/ Device 200 mls @ 200 mls/hr 02/09/19 21:00 02/09/19 20: 51 IVPB 200 mls Q12HR CYNTHIA Administration Insulin Human Lispro 0 units 02/09/19 03:10 02/09/19 16:08 Humalog SC 2 unit .MILD SLIDING SCALE PRN Administration Mild Correctional Scale Insulin Human Lispro 0 units 02/09/19 03:10 02/09/19 05:49 Humalog SC 4 unit .BEDTIME SLIDING SC PRN Administration Bedtime Correctional Scale Metformin HCl 1,000 mg 02/09/19 08:00 02/09/19 16:08 Glucophage PO 1,000 mg BID-WM CYNTHIA Administration Ondansetron HCl 4 mg 02/09/19 03:09 02/09/19 21:11 Zofran IVP 4 mg Q6H PRN Administration Nausea/Vomiting Sodium Chloride 10 ml 02/09/19 03:09 02/09/19 21:13 Flush - Normal Saline IVF 10 ml PRN PRN Administration Saline Flush Tramadol HCl 50 mg 02/09/19 03:11 02/10/19 04:31 Ultram PO 50 mg Q4H PRN Administration Moderate Pain (4-6) - Exam Neck: no JVD Heart: RRR, no murmur Respiratory: CTAB Gastrointestinal: soft, normal bowel sounds Extremities: no edema Hosp A/P (1) Cellulitis, face Code(s): L03.211 - CELLULITIS OF FACE Status: Acute (2) DM type 2 (diabetes mellitus, type 2) Status: Acute Qualifiers: Diabetes mellitus skilled nursing insulin use: without skilled nursing use Diabetes mellitus complication status: without complication Qualified Code(s): E11.9 - Type 2 diabetes mellitus without complications (3) GERD (gastroesophageal reflux disease) Code(s): K21.9 - GASTRO-ESOPHAGEAL REFLUX DISEASE WITHOUT ESOPHAGITIS Status: Acute Qualifiers: Esophagitis presence: esophagitis presence not specified Qualified Code(s) : K21.9 - Gastro-esophageal reflux disease without esophagitis - Plan erythema R face improvd. no abcess on CT. cont iv antibx, review this PM, DC on oral meds?
[2019-02-10] MEDS: metFORMIN 500 MG TAB PO SCH (08:07)
[2019-02-10] MEDS: Aspirin 81 mg Enteric Coated Tablet PO SCH (08:07)
[2019-02-10] MEDS: Famotidine/PF 20 mg/2ml Vial SLOW IVP SCH (08:07)
[2019-02-10] MEDS: Vancomycin HCl 1 GM in Premix Bag 1 BAG IVPB SCH (08:07)
[2019-02-10] MEDS: Sodium Chloride 0.9% 1,000 ML IV SCH (08:11)
[2019-02-10] MEDS: HumaLOG 300 UNITS/3 ML VIAL SC PRN ×2 (11:29→16:36)
[2019-02-10 12:54] VITALS: BP 136/79; TEMP 98.2
--- NOTE | 2019-02-10 14:40 | DIS ---
DATE OF ADMISSION: 02/08/2019 DATE OF DISCHARGE: 02/10/2019 TRANSFER OF CARE PRIMARY CARE PROVIDER: Kendrick Tirado. DISPOSITION: Discharged home. FINAL DIAGNOSES: Cellulitis of face; diabetes mellitus, type 2; and gastroesophageal reflux disease. DISCHARGE MEDICATIONS: 1. Omnicef 300 mg p.o. b.i.d. for 7 days. 2. Metformin 1000 mg twice a day. 3. Aspirin 81 mg a day. ALLERGIES: NO KNOWN DRUG ALLERGIES. DIET: Diabetic diet. CODE STATUS: Full code status. PENDING AT TIME OF DISCHARGE: Blood cultures are no growth at 48 hours. HOSPITAL COURSE: The patient was admitted through the emergency room with swelling and discomfort in the right cheek, some erythema. There is a small indurated portion with a scab. No drainage. White count was normal. No left shift. CT of the neck just reveals some soft tissue swelling. No evidence for an abscess. She was placed in the hospital on IV antibiotics. Today, the cultures are negative. The erythema was gone. There was very minimal redness in a small area lateral to the mouth on the right. She is desirous of going home. She has had no fever. She has had 2 CBCs with no elevated white count. She has dramatically improved. She is being discharged home on Omnicef 300 mg twice a day for 7 days and follow up with PCP in 7 days. CONSULTS: None. PROCEDURES: None. Job ID: [id number]
== END 2019-02-10 18:00 | disposition home or self-care (01) ==
LOC: SCSER 15:33 → ONC 18:06
PROVIDERS: ADMIT Internal Medicine; ATTEND Internal Medicine
DX: L03.211 Cellulitis of face (principal); E11.9 Type 2 diabetes mellitus without complications; K21.9 Gastro-esophageal reflux disease without esophagitis; E78.5 Hyperlipidemia, unspecified; J45.909 Unspecified asthma, uncomplicated; E66.9 Obesity, unspecified; Z68.37 Body mass index [BMI] 37.0-37.9, adult; Z79.84 Long term (current) use of oral hypoglycemic drugs; Z79.82 Long term (current) use of aspirin
CPT/HCPCS: 10060; 36415; 36416; 70491; 80048; 80053; 81003; 83605; 85025; 87040; 96361; 96365; 96366; 96367; 96375; 96376; G0378; J1815; J2270; J2405; J2543; J3370; J3490; Q9966; S0028

== ENCOUNTER 2019-03-15 10:00 | Observation (INO) | payer MEDICAID, SELFPAY ==
[2019-03-15 10:22] LABS: #Basophils 0.1 thou/uL (0.0-0.2); #Eosinphils 0.3 thou/uL (0.0-0.7); #Lymphocytes 2.7 thou/uL (1.20-3.40); #Monocytes 0.5 thou/uL (0.11-0.59); #Neutrophils 4.4 thou/uL (1.40-6.50); %Basophils 0.9 % (0.0-1.0); %Eosinophils 3.9 % (0.0-10.0); %Lymphocytes 33.4 % (21.0-51.0); %Monocytes 6.5 % (0.0-10.0); %Neutrophils 55.3 % (42.0-75.0); Mean Corpuscular Hemoglobin 30.3 pg (27.0-31.0); Mean Platelet Volume 7.3 fL (7.4-10.4); Platelet Count 340 thou/uL (130-400)
[2019-03-15 10:27] LABS: PTT 24.7 SEC (22.9-36.1); Prothrombin Time 12.9 SEC (12.0-14.7)
--- NOTE | 2019-03-15 10:29 | CT ---
Exam: Head CT without contrast HISTORY: Left-sided weakness. Laceration normal at 2200 hours. Level 2 stroke. COMPARISON: 12/31/2012 FINDINGS: Hemorrhage: No intraparenchymal hemorrhage or extra-axial hematoma. Brain parenchyma: Cortical dee-white matter differentiation is preserved. No mass effect or midline shift. Basilar cisterns are patent. Ventricular system: Ventricles and sulci are patent and symmetric. Calvarium: Intact. Sinuses and mastoid air cells: Adequate aeration. Possible aeration of the right middle ear and masto id air cells IMPRESSION: No acute intracranial process. Results study discussed with Dr. Park 03/15/2019 at 10:26 AM Code CR
[2019-03-15] MEDS ORDERED: Aspirin Chewable 81 MG TAB ONE (10:42)
[2019-03-15 10:49] LABS: ALT (SGPT) 14 U/L (8-55); AST (SGOT) 12 U/L (5-34); Albumin 3.8 g/dL (3.5-5.0); Alkaline Phosphatase 64 U/L (40-150); Anion Gap 17 mmol/L (10-20); BUN (Urea Nitrogen) 15 mg/dL (7.0-18.7); Bilirubin, Total 0.3 mg/dL (0.2-1.2); Calc. Creatinine Clearance 0 mL/min (70-130); Calcium 9.2 mg/dL (7.8-10.44); Carbon Dioxide 18 mmol/L (22-29); Chloride 100 mmol/L (98-107); Estimated GFR-MDRD 76; Globulin 4.2 g/dL (2.4-3.5); Glucose 410 mg/dL (70-105); Potassium 4.5 mmol/L (3.5-5.1); Sodium 130 mmol/L (136-145)
--- NOTE | 2019-03-15 10:55 | CT ---
EXAM: CT angiogram of the head including 3-D rendering: HISTORY: Left-sided weakness, level 2 stroke alert COMPARISON: None FINDINGS: There is adequate opacification of the intracranial arteries. Visualized vertebral and basilar arteries: Unremarkable. Right and left intracranial internal carotid arteries: Unremarkable. Right and left Anterior and posterior cerebral arteries: Unremarkable. Right and left middle cerebral arteries: Unremarkable. No evidence for an M1 segment occlusion. No evidence for intracranial aneurysm. IMPRESSION: No significant major branch occlusion or stenosis. No evidence for intracranial aneurysm. EXAM: CT angiogram of the neck including 3-D rendering: HISTORY: Left-sided weakness, stroke alert COMPARISON: None FINDINGS: There is adequate opacification of the extracranial arterial tree. The origins of the right and left carotid and vertebral arteries demonstrate no significant stenosis. Right common, internal, and external carotid arteries:No evidence for significant stenosis or occlusi ve disease. Left common, internal, and external carotid arteries:No significant stenosis or occlusive disease. Right and left vertebral arteries and basilar artery:No significant stenosis or occlusion. Soft tissue neck demonstrates no evidence for significant adenopathy, mass, or abnormal fluid collect ion. IMPRESSION: No significant carotid, vertebral, or basilar artery stenosis or occlusive disease or other significa nt acute process. Findings were discussed with Dr. Park in the emergency room at 10:45 AM CODE CR
[2019-03-15] MEDS ORDERED: Acetaminophen 500 MG TAB ONE (11:04)
[2019-03-15] MEDS ORDERED: Insulin Regular 300 UNITS/3 ML VIAL ONE (11:04)
--- NOTE | 2019-03-15 11:15 | RAD ---
LEFT KNEE 4 VIEWS: Date: 03/15/19 HISTORY: Left knee pain. FINDINGS/IMPRESSION: No fracture, dislocation, or bony destruction seen. POS: OFF
[2019-03-15 11:49] LABS: Bilirubin Negative (Negative); Blood, Urine Negative (Negative); Clarity Clear (Clear); Glucose, Urine (Dipstick) Greater than 1000 mg/dL (Negative); Leukocyte 75 Leu/uL (Negative); Nitrite Negative (Negative); Protein, Urine (Dipstick) Negative (Neg-Trace); Urobilinogen Normal mg/dL (Less than 2)
[2019-03-15 12:04] LABS: RBC/HPF 0-3 HPF (0-3)
[2019-03-15 12:06] LABS: Bacteria/HPF Rare-Few HPF (None Seen); Yeast-Budding Rare HPF (None Seen)
[2019-03-15 14:11] VITALS: BMI 36.3
[2019-03-15] MEDS ORDERED: Ondansetron ODT 4 MG TAB SL PRN (14:12)
[2019-03-15] MEDS ORDERED: Ondansetron PF 4 MG/2 ML Vial IVP PRN (14:12)
[2019-03-15] MEDS ORDERED: Acetaminophen 325 MG TAB PO PRN (14:12)
[2019-03-15 14:32] LABS: Troponin I Less than 0.010 ng/mL (< 0.028)
[2019-03-15] MEDS ORDERED: hydrALAZINE 20 MG/ML VIAL SLOW IVP PRN (16:42)
[2019-03-15] MEDS ORDERED: Labetalol HCl 100 MG/20 ML VIAL SLOW IVP PRN (16:42)
[2019-03-15] MEDS ORDERED: Dextrose 50% Abboject 50 ML SYRINGE SLOW IVP PRN (16:50)
[2019-03-15] MEDS ORDERED: HumaLOG 300 UNITS/3 ML VIAL SC PRN (16:50)
[2019-03-15] MEDS ORDERED: Dextrose 5% in Water 1,000 ML IV PRN (16:50)
[2019-03-15] MEDS: metFORMIN 500 MG TAB PO SCH (17:01)
[2019-03-15] MEDS: HYDROcodone/Acetaminophen 5/325 mg Tablet PO PRN ×2 (17:10→21:24)
[2019-03-15] MEDS: HumaLOG 300 UNITS/3 ML VIAL SC PRN (17:12)
[2019-03-15 18:04] LABS: Troponin I Less than 0.010 ng/mL (< 0.028)
--- NOTE | 2019-03-15 18:42 | RAD ---
XR Hip Lt 2-3 View History: Pain Comparison: None. Findings: No acute fracture. Moderate degenerative disease left SI joint. Moderate acetabular osteoph yte formation. Narrowing of the pubic symphysis with sclerosis and osteophyte formation. Phleboliths in the pelvis. Mild enthesopathic change of the anterior superior iliac spine. Impression: [id number] degenerative changes advanced for age. No acute osseous abnormality.
--- NOTE | 2019-03-15 19:30 | HP ---
CHIEF COMPLAINT: Left upper and lower extremity weakness and paresthesia. HISTORY OF PRESENT ILLNESS: Ms. Zamudio is a very pleasant 43-year-old female with past medical history significant for type 2 diabetes mellitus and hyperlipidemia, who presented to the hospital today with complaints of left-sided weakness and paresthesia. She states that she felt as if her left arm has been numb and tingling since she woke up. She describes some left leg "heaviness." She states that she feels as if it is hard for her to pick that leg up. She suffered a fall this morning and presented to the emergency department for further workup and treatment. The patient has had no slurred speech. She denies any facial droop. She denies any cardiac symptoms including chest pain or shortness of breath. On arrival to the emergency department, she had a CT of the brain, which was negative for any acute intracranial abnormality. She had a CTA, which showed no significant branch occlusion or stenosis. The patient's EKG shows normal sinus rhythm with no acute ST or T-wave changes. Her lab work was remarkable for a blood sugar of over 400 on arrival. The patient states that she had previously been on metformin and glipizide, but has no longer been taking these medications when she lost her insurance. She does have Medicaid at this point and would like to get established with a PCP besides [employer]. REVIEW OF SYSTEMS: A 12-point review of systems performed and is negative except that stated above. Of note, the patient has had a normal nuclear stress test in September of this year as well. PAST MEDICAL HISTORY: As mentioned, hyperlipidemia, type 2 diabetes mellitus, asthma, and history of H pylori, status post treatment. SURGICAL HISTORY: Bilateral tympanostomy tubes, appendectomy, cholecystectomy, tubal ligation, and hysterectomy. SOCIAL HISTORY: The patient has six children, ages 24 to 10. She drinks alcohol very rarely. She denies any illicit drug use or smoking history. FAMILY HISTORY: Positive for diabetes mellitus in both her mother and her father. ALLERGIES: NO KNOWN DRUG ALLERGIES. MEDICATIONS: None. PHYSICAL EXAMINATION: VITAL SIGNS: Blood pressure is 139/74, pulse 74, O2 saturation is 97% on room air, respirations 16, and temperature 98. GENERAL: This is a moderately obese female, resting comfortably in bed, in no acute distress. HEENT: Head is atraumatic and normocephalic. Mucous membranes are moist. NECK: Trachea is midline. No JVD. No carotid bruits. CV: S1 and S2, regular rate and rhythm. No appreciable murmurs, rubs, or gallops. LUNGS: Regular respiratory rate and pattern. Clear to auscultation bilaterally. ABDOMEN: Obese, positive bowel sounds. Nontender. EXTREMITIES: No lower extremity pitting edema. SKIN: Warm and dry. Multiple tattoos noted. NEUROLOGIC: Cranial nerves 2 through 12 are intact. On my exam, she has 5/5 motor strength bilaterally in the upper extremities, 3/5 on the left lower extremity, 5/5 on the right lower extremity. LABORATORY DATA: White blood cell count 8, hemoglobin 13, hematocrit 38.3, and platelet count is 340. PT is 12.9, INR is 1. Sodium 130, potassium 4.5, carbon dioxide 18, anion gap 17, BUN 15, creatinine 0.83, glucose 357, AST 12, ALT 14, alkaline phosphatase 64. Troponin is negative x3. Urinalysis is negative for acute infection. ASSESSMENT: 1. Left upper and lower extremity paresthesia and weakness, concerning for transient ischemic attack versus cerebrovascular accident in a patient with uncontrolled diabetes mellitus. 2. Uncontrolled type 2 diabetes mellitus, currently on no medications. 3. Status post mechanical fall with residual left hip and left knee pain. 4. Hyperlipidemia. 5. Noncompliance. PLAN: At this time, we will admit to observation for CVA rule out. We will obtain an MRI of the brain along with echocardiogram. We will also get an x-ray of her left hip as she continues to complain of pain since her fall. We will cover her diabetes with sliding scale insulin for now. We will need to hold reinstating metformin as the patient did have iodine contrast today for her CTA. We will add daily aspirin as well as statin. I will also add lisinopril for nephro protection. Physical Therapy consult in the morning. I have counseled the patient extensively on the importance of controlling her diabetes and associated health risks if her diabetes remains uncontrolled, and she does understand. GI and DVT prophylaxes have been ordered. Continue sliding scale insulin for now. Further recommendations based on hospital course and findings of noninvasive testing. Job ID: [id number]
[2019-03-15] MEDS ORDERED: Atorvastatin Calcium 40 MG TAB PO SCH (21:00)
[2019-03-16] MEDS: HYDROcodone/Acetaminophen 5/325 mg Tablet PO PRN ×3 (04:27→14:24)
[2019-03-16 05:04] LABS: Hemoglobin A1c 10.9 % (4.0-6.0)
[2019-03-16 05:24] LABS: Cardiac Risk 6.3 (Less than 4.5)
[2019-03-16] MEDS: HumaLOG 300 UNITS/3 ML VIAL SC PRN ×3 (06:25→17:30)
[2019-03-16] MEDS: metFORMIN 500 MG TAB PO SCH ×2 (08:36→18:47)
[2019-03-16] MEDS ORDERED: Aspirin 81 mg Enteric Coated Tablet PO SCH (09:00)
[2019-03-16] MEDS ORDERED: Lisinopril 5 MG TAB PO SCH (09:00)
--- NOTE | 2019-03-16 09:01 | MRI ---
Exam: Brain MRI without contrast HISTORY: Stroke. Weakness. Fall. Left-sided symptoms. COMPARISON: None FINDINGS: Calvarial marrow signal intensity: Appropriate T1 signal Gradient echo sequence: No hemorrhage Brain parenchyma: No mass, mass effect or midline shift. Brain volume, age-appropriate. Cortical dee-white matter differentiation: Preserved Restricted diffusion: Central arterial flow voids are maintained. Absent restricted diffusion White matter signal intensities: T2, FLAIR white matter hyperintensities due to chronic small vessel ischemic changes Sinuses: Mucous retention cyst in the right maxillary sinus. Partial opacification left mastoid air c ells. IMPRESSION: 1. Absent restricted diffusion. No acute infarct.
--- NOTE | 2019-03-16 11:37 | PDOC.HOSPP ---
- Subjective Encounter Date: 03/16/19 Encounter Time: 11:34 Subjective: Ms. Zamudio was seen today in follow-up of left leg weakness. She continues to have shooting pain down her left leg, and has difficulty walking due to the pain. She also notes some weakness. - Objective Vital Signs & Weight: Vital Signs (12 hours) Temp Pulse Resp BP BP BP Pulse Ox 03/16/19 11:24 98.4 F 91 16 137/88 99 03/16/19 09:39 72 122/82 03/16/19 08:06 97.7 F 72 18 122/82 96 03/16/19 04:00 98.5 F 80 16 118/70 98 03/16/19 00:00 98.4 F 80 15 121/74 98 Weight Weight 246 lb 1.6 oz I&O: 03/15/19 03/16/19 03/17/19 06:59 06:59 06:59 Intake Total 950 Balance 950 Result Diagrams: 03/15/19 10:11 03/15/19 10:11 Additional Labs: Accuchecks 03/16/19 03/15/19 03/15/19 05:34 19:44 16:37 POC Glucose 259 H 261 H 282 H Hospitalist ROS - Medication Medications: Active Medications Generic Name Dose Route Start Last Admin Trade Name Freq PRN Reason Stop Dose Admin Hydrocodone Bitart/Acetaminophen 1 tab 03/15/19 16:55 03/16/19 09:40 [place] 5/325 PO 1 tab Q4H PRN Administration Moderate Pain (4-6) Aspirin 81 mg 03/16/19 09:00 03/16/19 09:40 Ecotrin PO 81 mg DAILY CYNTHIA Administration Atorvastatin Calcium 40 mg 03/15/19 21:00 03/15/19 21:26 Lipitor PO 40 mg HS CYNTHIA Administration Insulin Human Lispro 0 units 03/15/19 16:50 03/16/19 06:25 Humalog SC 4 unit .MILD SLIDING SCALE PRN Administration Mild Correctional Scale Insulin Human Lispro 0 units 03/15/19 16:50 03/15/19 21:26 Humalog SC 3 unit .BEDTIME SLIDING SC PRN Administration Bedtime Correctional Scale Lisinopril 5 mg 03/16/19 09:00 03/16/19 09:39 Zestril PO 5 mg DAILY CYNTHIA Administration Metformin HCl 500 mg 03/15/19 17:00 03/16/19 08:36 Glucophage PO Not Given BID-WM CYNTHIA - Exam Eye: PERRL, anicteric sclera Heart: RRR, no murmur, no gallops, no rubs, normal peripheral pulses Respiratory: CTAB, no wheezes, no rales, no ronchi, normal chest expansion Gastrointestinal: soft, non-tender, non-distended, normal bowel sounds, no palpable masses, no hepatomegaly, no splenomegaly Extremities: no cyanosis, no edema Neurological: normal sensation to touch, no focal deficits (+ stright leg raises , on the left, muscle strength is 5/5 but weaker than on the right) Hosp A/P (1) Left leg weakness Code(s): R29.898 - [facility] SYMPTOMS AND SIGNS INVOLVING THE MUSCULOSKELETAL SYSTEM Status: Acute (2) DM type 2 (diabetes mellitus, type 2) Status: Acute Qualifiers: 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 She has significant problems with ADL's and this has been a problem for about 3 monhts, and is progressing * Will check an MRI of the lumbar spine * DM- blood glucose is a bit elevated- will monitor- continue SSI
--- NOTE | 2019-03-16 14:53 | MRI ---
MRI OF LUMBAR SPINE: INDICATION: Back pain. Left leg weakness. FINDINGS: Lumbar vertebrae maintain normal height and alignment. There is degenerative signal change at L5-S1. Mild loss of disk height at L5-S1. There is a disk protrusion at L5-S1 which his central and slightly to the left. This protrusion/kyaw iation measures 7-8 mm AP dimension in the axial plane. It indents the thecal sac resulting in mild to moderate central canal stenosis. It displaces the traversing S1 nerve root. No foraminal stenosi s at the L5-S1 level. Left nerve roots exit without impingement. At the L4-5 level, there is a mild broad-based disk bulge which flattens the anterior thecal sac. Th ere is mild facet hypertrophy. However, no significant central canal or foraminal stenosis. No disk bulge protrusion is seen at L3-4, L2-3, or L1-2. No central canal or foraminal stenosis at a ny of these levels. IMPRESSION: Disk protrusion at L5-S1 centrally and slightly to the left compressing the anterior thecal sac and d isplacing the traversing left S1 nerve root. POS: MARIAM
[2019-03-16 15:12] VITALS: BP 116/70; TEMP 98.7
--- NOTE | 2019-03-16 17:48 | PDOC.HOSPP ---
- Subjective Encounter Date: 03/16/19 - Objective Vital Signs & Weight: Vital Signs (12 hours) Temp Pulse Pulse Pulse Resp BP BP 03/16/19 15:10 98.7 F 87 16 03/16/19 11:24 98.4 F 91 16 03/16/19 09:45 81 93 118/84 03/16/19 09:39 72 122/82 03/16/19 08:06 97.7 F 72 18 BP BP BP Pulse Ox 03/16/19 15:10 116/70 97 03/16/19 11:24 137/88 99 03/16/19 09:45 131/85 03/16/19 09:39 03/16/19 08:06 122/82 96 Weight Weight 246 lb 1.6 oz I&O: 03/15/19 03/16/19 03/17/19 06:59 06:59 06:59 Intake Total 950 540 Balance 950 540 Result Diagrams: 03/15/19 10:11 03/15/19 10:11 Additional Labs: Accuchecks 03/16/19 03/16/19 03/16/19 16:37 11:28 05:34 POC Glucose 251 H 274 H 259 H 03/15/19 19:44 POC Glucose 261 H Hospitalist ROS - Medication Medications: Active Medications Generic Name Dose Route Start Last Admin Trade Name Freq PRN Reason Stop Dose Admin Hydrocodone Bitart/Acetaminophen 1 tab 03/15/19 16:55 03/16/19 14:24 [place] 5/325 PO 1 tab Q4H PRN Administration Moderate Pain (4-6) Aspirin 81 mg 03/16/19 09:00 03/16/19 09:40 Ecotrin PO 81 mg DAILY CYNTHIA Administration Atorvastatin Calcium 40 mg 03/15/19 21:00 03/15/19 21:26 Lipitor PO 40 mg HS CYNTHIA Administration Insulin Human Lispro 0 units 03/15/19 16:50 03/16/19 17:30 Humalog SC 4 unit .MILD SLIDING SCALE PRN Administration Mild Correctional Scale Insulin Human Lispro 0 units 03/15/19 16:50 03/15/19 21:26 Humalog SC 3 unit .BEDTIME SLIDING SC PRN Administration Bedtime Correctional Scale Lisinopril 5 mg 03/16/19 09:00 03/16/19 09:39 Zestril PO 5 mg DAILY CYNTHIA Administration Metformin HCl 500 mg 03/15/19 17:00 03/16/19 08:36 Glucophage PO Not Given BID-WM CYNTHIA Hosp A/P (1) Left leg weakness Code(s): R29.898 - [facility] SYMPTOMS AND SIGNS INVOLVING THE MUSCULOSKELETAL SYSTEM Status: Acute (2) DM type 2 (diabetes mellitus, type 2) Status: Acute Qualifiers: 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 She has significant problems with ADL's and this has been a problem for about 3 monhts, and is progressing * Will check an MRI of the lumbar spine * DM- blood glucose is a bit elevated- will monitor- continue SSI
--- NOTE | 2019-03-17 05:31 | DIS ---
DATE OF ADMISSION: 03/15/2019 DATE OF DISCHARGE: 03/16/2019 DISCHARGE DISPOSITION: Home. DISCHARGE DIAGNOSES: 1. Lumbar radiculopathy. 2. Hypertension. 3. Diabetes mellitus, type 2. 4. History of asthma. DISCHARGE MEDICATIONS: 1. Metformin 500 mg twice daily. 2. Lisinopril 5 mg daily. 3. Lipitor 40 mg daily. 4. Aspirin 81 mg daily. 5. Tramadol 50 mg q.6 as needed. 6. Zanaflex 4 mg at bedtime. PROCEDURES DONE DURING ADMISSION: The patient had a CT scan of the brain, which was negative for any acute intracranial process. The patient also had a CT scan of the [place], which was also negative for any acute flow-limiting disease. The patient had an echocardiogram showing an ejection fraction of 60% to 65% and normal diastolic dysfunction. Also, had an MRI of the brain showing no acute infarct and an MRI of the lumbar spine showing some disk protrusion at L5-S1 compressing the anterior thecal sac and displacing the S1 nerve root. CODE STATUS: Full code. ALLERGIES: NO KNOWN DRUG ALLERGIES. HOSPITAL COURSE: Ms. Zamudio is a pleasant 43-year-old female, who presented to the emergency room complaining of left upper as well as lower extremity weakness and paresthesias. The initial concern was for possible stroke and this workup was undertaken and was negative. On evaluating the patient further, her symptoms were more consistent with a lumbar radiculopathy. An MRI was done, which did demonstrate some findings of a lumbar disk protrusion consistent with this. The patient did not have any significant warning symptoms that would necessitate urgent Neurosurgery consultation. Therefore, she was instructed to talk to her primary care physician about it and likely get referral for physical therapy first for an anticipated trial of 4 to 6 weeks and then potentially referral to Orthopedic or Neurosurgery thereafter. She will also be discharged home on tramadol and Zanaflex. The patient was also instructed should her symptoms worsen with regard to her weakness, then to return to the ER. Job ID: [id number]
== END 2019-03-16 18:49 | disposition home or self-care (01) ==
LOC: ERS 10:00 → 2SE 11:12
PROVIDERS: ADMIT Internal Medicine; ATTEND Internal Medicine
DX: M54.16 Radiculopathy, lumbar region (principal); M51.27 Other intervertebral disc displacement, lumbosacral region; R20.2 Paresthesia of skin; I10 Essential (primary) hypertension; E11.9 Type 2 diabetes mellitus without complications; J45.909 Unspecified asthma, uncomplicated; E78.5 Hyperlipidemia, unspecified; M25.562 Pain in left knee; M16.12 Unilateral primary osteoarthritis, left hip; E66.9 Obesity, unspecified; Z68.36 Body mass index [BMI] 36.0-36.9, adult; Z91.14 Patient's other noncompliance with medication regimen; W19.XXXA Unspecified fall, initial encounter
CPT/HCPCS: 36415; 36416; 70450; 70496; 70498; 70551; 72148; 80053; 80061; 81003; 81015; 83036; 84484; 85025; 85610; 85730; 90471; 90732; 93005; 93306; 94760; 96361; 96374; G0009; G0378; J1815

== ENCOUNTER 2019-03-17 05:41 | Emergency (ER) | payer MEDICAID ==
[2019-03-17] MEDS ORDERED: diphenhydrAMINE 50 MG/ML VIAL ONE (06:10)
[2019-03-17] MEDS ORDERED: Acetaminophen 500 MG TAB ONE (06:10)
[2019-03-17] MEDS ORDERED: Metoclopramide HCl 10 MG/2 ML VIAL ONE (06:10)
[2019-03-17 06:15] LABS: #Eosinphils 0.1 thou/uL (0.0-0.7); #Lymphocytes 1.8 thou/uL (1.20-3.40); #Monocytes 0.9 thou/uL (0.11-0.59); #Neutrophils 10.2 thou/uL (1.40-6.50); %Basophils 0.1 % (0.0-1.0); %Lymphocytes 13.6 % (21.0-51.0); %Monocytes 6.9 % (0.0-10.0); %Neutrophils 78.4 % (42.0-75.0); Hemoglobin 13.6 g/dL (12.0-16.0); Mean Corpuscular HGB CONC 33.4 g/dL (32.0-36.0); Mean Corpuscular Hemoglobin 29.6 pg (27.0-31.0); Mean Corpuscular Volume 88.7 fL (78.0-98.0); Mean Platelet Volume 7.3 fL (7.4-10.4); Platelet Count 330 thou/uL (130-400); Red Blood Cell (RBC) Count 4.59 mill/uL (4.20-5.40)
[2019-03-17 06:46] LABS: ALT (SGPT) 23 U/L (8-55); AST (SGOT) 24 U/L (5-34); Albumin 3.7 g/dL (3.5-5.0); Alkaline Phosphatase 66 U/L (40-150); Anion Gap 15 mmol/L (10-20); BUN (Urea Nitrogen) 15 mg/dL (7.0-18.7); Bilirubin, Total 0.6 mg/dL (0.2-1.2); Calc. Creatinine Clearance 0 mL/min (70-130); Calcium 9.2 mg/dL (7.8-10.44); Carbon Dioxide 21 mmol/L (22-29); Chloride 98 mmol/L (98-107); Estimated GFR-MDRD 86; Globulin 4.5 g/dL (2.4-3.5); Glucose 286 mg/dL (70-105); Potassium 5.1 mmol/L (3.5-5.1); Protein, Total 8.2 g/dL (6.0-8.3); Sodium 129 mmol/L (136-145)
[2019-03-17] MEDS ORDERED: Lidocaine 1% (PF) 30 ML VIAL ONE (07:04)
[2019-03-17 07:52] LABS: CSF Source CSF; Clarity Hazy (Clear); Tube # 1; Tube # 2
[2019-03-17 07:53] LABS: Clarity Clear (Clear)
--- NOTE | 2019-03-17 07:59 | CT ---
CT BRAIN WITHOUT CONTRAST: INDICATIONS: History of headache. COMPARISON: Prior CT brain dated 03/15/2019. FINDINGS: No acute infarct, hemorrhage, or hydrocephalus is evident. No midline shift is evident. The skull a nd extracranial soft tissues are unremarkable appearing. IMPRESSION: No acute intracranial abnormality. POS: BH
[2019-03-17] MEDS ORDERED: Magnesium 2 GM/50 ML BAG (IN WATER) ONE (08:54)
[2019-03-17] MEDS ORDERED: methylPREDNISolone Sod Succ/PF 125 MG/2 ML VIAL ONE (08:54)
[2019-03-17] MEDS ORDERED: Ondansetron PF 4 MG/2 ML Vial ONE (08:54)
[2019-03-17] MEDS ORDERED: Ketorolac Tromethamine 30 MG/ML VIAL ONE (08:54)
== END 2019-03-17 11:48 | disposition home or self-care (01) ==
LOC: ERS 05:41
DX: R51 Headache (principal); E78.5 Hyperlipidemia, unspecified; E11.9 Type 2 diabetes mellitus without complications; J45.909 Unspecified asthma, uncomplicated; Z79.84 Long term (current) use of oral hypoglycemic drugs; Z79.899 Other long term (current) drug therapy
CPT/HCPCS: 62270; 70450; 80053; 85025; 89051; 96361; 96365; 96375; J1200; J1885; J2001; J2405; J2765; J2930; J3475

== ENCOUNTER 2020-01-16 17:58 | Emergency (ER) | payer MEDICAID, SELFPAY ==
[2020-01-16] MEDS ORDERED: traMADol HCl 50 MG TAB ONE (19:43)
== END 2020-01-16 20:53 | disposition home or self-care (01) ==
LOC: ERS 17:58
DX: L02.11 Cutaneous abscess of neck (principal); E78.5 Hyperlipidemia, unspecified; E11.9 Type 2 diabetes mellitus without complications; J45.909 Unspecified asthma, uncomplicated; Z79.899 Other long term (current) drug therapy; Z79.84 Long term (current) use of oral hypoglycemic drugs; Z79.82 Long term (current) use of aspirin
CPT/HCPCS: 10060

== ENCOUNTER 2020-04-23 18:47 | Emergency (ER) | payer SELFPAY ==
[2020-04-23] MEDS ORDERED: Ketorolac Tromethamine 30 MG/ML VIAL ONE (19:48)
== END 2020-04-23 21:09 | disposition home or self-care (01) ==
LOC: ERS 18:47
DX: G89.29 Other chronic pain (principal); M54.5 Low back pain; E78.5 Hyperlipidemia, unspecified; E11.9 Type 2 diabetes mellitus without complications; J45.909 Unspecified asthma, uncomplicated; Z79.84 Long term (current) use of oral hypoglycemic drugs; Z79.899 Other long term (current) drug therapy
CPT/HCPCS: 96372; 99283; J1885

== ENCOUNTER 2020-05-14 11:12 | Outpatient (CLI) | payer OTHER ==
--- NOTE | 2020-05-14 11:33 | RAD ---
EXAM: XR Lumbar Spine 2 Or 3 View PROVIDED CLINICAL HISTORY: Disability exam. Lower back pain which has worsened over past 4 months. COMPARISON: None FINDINGS: There are 6 nonrib-bearing lumbar-type vertebral bodies. Chest x-ray on 09/21/2018 demonstrates 11 thor acic ribs, and the T12 ribs are hypoplastic. For the purposes of this examination, the lumbar vertebral bodies will be numbered L1-L5 with lumbosacral junction labeled L5-S1. The vertebral body heights are within normal limits. There is minimal narrowing of the L4-5 intervert ebral disc space with greater degree of narrowing involving the L5-S1 intervertebral disc space. Facet degenerative changes are seen at the L5-S1 level. No fracture or subluxation is seen involving the lumbar spine. Phleboliths overlie the left hemipelvis. IMPRESSION: Degenerative changes lower lumbar spine greatest at the L5-S1 level.
== END 2020-05-14 11:13 | disposition home or self-care (01) ==
LOC: BICRAD 11:12
PROVIDERS: ATTEND Internal Medicine
DX: Z02.71 Encounter for disability determination (principal); M47.817 Spondylosis without myelopathy or radiculopathy, lumbosacral region
CPT/HCPCS: 72100

== ENCOUNTER 2020-11-17 18:32 | Emergency (ER) | payer MEDICAID, SELFPAY ==
[2020-11-17] MEDS ORDERED: predniSONE 20 MG TAB ONE (19:25)
[2020-11-17] MEDS ORDERED: Cyclobenzaprine 10 MG TAB ONE (19:25)
[2020-11-17] MEDS ORDERED: Acetaminophen/Codeine 30-300mg Tablet ONE (19:25)
[2020-11-17] MEDS ORDERED: Ketorolac Tromethamine 30 MG/ML VIAL ONE (19:25)
== END 2020-11-17 19:39 | disposition home or self-care (01) ==
LOC: ERS 18:32
DX: M62.830 Muscle spasm of back (principal); E78.5 Hyperlipidemia, unspecified; E11.9 Type 2 diabetes mellitus without complications; J45.909 Unspecified asthma, uncomplicated; Z79.82 Long term (current) use of aspirin; Z79.899 Other long term (current) drug therapy
CPT/HCPCS: 96372; 99283; J1885; J7512

== ENCOUNTER 2021-04-03 09:07 | Emergency (ER) | payer SELFPAY ==
[2021-04-03] MEDS ORDERED: Promethazine HCl 25 MG/ML VIAL ONE (09:26)
[2021-04-03] MEDS ORDERED: Morphine 4 MG/ML VIAL ONE ×2 (09:26→11:31)
[2021-04-03 10:07] LABS: #Basophils 0.1 thou/uL (0.0-0.2); #Eosinphils 0.3 thou/uL (0.0-0.7); #Lymphocytes 2.8 thou/uL (1.20-3.40); #Monocytes 0.6 thou/uL (0.11-0.59); %Basophils 0.7 % (0.0-1.0); %Eosinophils 3.4 % (0.0-10.0); %Lymphocytes 31.9 % (21.0-51.0); %Monocytes 6.4 % (0.0-10.0); %Neutrophils 57.6 % (42.0-75.0); Hemoglobin 14.8 g/dL (12.0-16.0); Mean Corpuscular HGB CONC 32.2 g/dL (32.0-36.0); Mean Platelet Volume 8.4 fL (7.4-10.4); Platelet Count 296 thou/uL (130-400); RBC Distribution Width 12.2 % (11.5-14.5); Red Blood Cell (RBC) Count 4.95 mill/uL (4.20-5.40); White Blood Cell (WBC) Count 8.7 thou/uL (4.8-10.8)
[2021-04-03 10:57] LABS: BHCG - Serum Negative (NEGATIVE); Pregs Control Background? CLEAR/WHITE (CLR/WHITE); Pregs Control Bar Appear? YES (CONTROL BAR)
[2021-04-03 11:03] LABS: Bacteria/HPF None Seen HPF (None Seen); Bilirubin Negative (Negative); Blood, Urine Negative (Negative); Clarity Clear (Clear); Glucose, Urine (Dipstick) Greater than 1000 mg/dL (Negative); Ketone, Urine 10 mg/dL (Negative); Leukocyte 75 Leu/uL (Negative); Nitrite Negative (Negative); Protein, Urine (Dipstick) Negative (Neg-Trace); Specific Gravity, Urine 1.046 (1.002-1.036); Urobilinogen Normal mg/dL (Less than 2)
[2021-04-03 11:14] LABS: ALT (SGPT) 70 U/L (8-55); AST (SGOT) 64 U/L (5-34); Albumin 3.7 g/dL (3.5-5.0); Alkaline Phosphatase 58 U/L (40-110); Anion Gap 16 mmol/L (10-20); BUN (Urea Nitrogen) 11 mg/dL (7.0-18.7); Bilirubin, Total 0.6 mg/dL (0.2-1.2); Calc. Creatinine Clearance 0 mL/min (70-130); Calcium 9.3 mg/dL (7.8-10.44); Carbon Dioxide 22 mmol/L (22-29); Chloride 101 mmol/L (98-107); Globulin 3.2 g/dL (2.4-3.5); Glucose 404 mg/dL (70-105); Lipase 25 U/L (8-78); Magnesium 1.7 mg/dL (1.6-2.6); Potassium 4.6 mmol/L (3.5-5.1); Protein, Total 6.9 g/dL (6.0-8.3); Sodium 134 mmol/L (136-145)
[2021-04-03 19:05] LABS: SARS-CoV-2 PCR by NAA Not Detected (NotDetected)
== END 2021-04-03 12:23 | disposition home or self-care (01) ==
LOC: ERS 09:07
DX: R10.9 Unspecified abdominal pain (principal); R11.2 Nausea with vomiting, unspecified; Z79.4 Long term (current) use of insulin; Z79.82 Long term (current) use of aspirin; Z79.899 Other long term (current) drug therapy; E78.5 Hyperlipidemia, unspecified; E11.9 Type 2 diabetes mellitus without complications; J45.909 Unspecified asthma, uncomplicated; Z20.822 Contact with and (suspected) exposure to COVID-19
CPT/HCPCS: 36415; 74176; 80053; 81003; 81015; 83605; 83690; 83735; 84703; 85025; 94760; 96374; 96375; 96376; J2270; J2550; U0003; U0005

== ENCOUNTER 2021-08-06 22:50 | Observation (INO) | payer SELFPAY ==
[2021-08-06 23:36] LABS: #Basophils 0.1 thou/uL (0.0-0.2); #Eosinphils 0.4 thou/uL (0.0-0.7); #Lymphocytes 4.4 thou/uL (1.20-3.40); #Monocytes 0.9 thou/uL (0.11-0.59); #Neutrophils 4.8 thou/uL (1.40-6.50); %Basophils 0.9 % (0.0-1.0); %Eosinophils 3.9 % (0.0-10.0); %Lymphocytes 41.9 % (21.0-51.0); %Monocytes 8.2 % (0.0-10.0); %Neutrophils 45.1 % (42.0-75.0); Mean Corpuscular HGB CONC 33.5 g/dL (32.0-36.0); Mean Corpuscular Hemoglobin 31.4 pg (27.0-31.0); Mean Corpuscular Volume 93.5 fL (78.0-98.0); Mean Platelet Volume 7.3 fL (7.4-10.4); Platelet Count 272 thou/uL (130-400); Red Blood Cell (RBC) Count 4.14 mill/uL (4.20-5.40); White Blood Cell (WBC) Count 10.5 thou/uL (4.8-10.8)
[2021-08-06 23:59] LABS: ALT (SGPT) 36 U/L (8-55); AST (SGOT) 25 U/L (5-34); Albumin 3.8 g/dL (3.5-5.0); Alkaline Phosphatase 61 U/L (40-110); Anion Gap 15 mmol/L (10-20); BUN (Urea Nitrogen) 14 mg/dL (7.0-18.7); Bilirubin, Total 0.3 mg/dL (0.2-1.2); Calc. Creatinine Clearance 0 mL/min (70-130); Carbon Dioxide 22 mmol/L (22-29); Chloride 102 mmol/L (98-107); Globulin 3.5 g/dL (2.4-3.5); Glucose 285 mg/dL (70-105); Potassium 4.1 mmol/L (3.5-5.1); Protein, Total 7.3 g/dL (6.0-8.3); Sodium 135 mmol/L (136-145)
[2021-08-07] MEDS ORDERED: Nitroglycerin 0.4 MG TAB 1 EACH ONE ×2 (00:26→00:29)
[2021-08-07] MEDS ORDERED: Aspirin 325 MG TAB ONE (00:26)
[2021-08-07] MEDS ORDERED: Ketorolac Tromethamine 30 MG/ML VIAL ONE (01:25)
[2021-08-07 03:35] LABS: Troponin I Less than 0.010 ng/mL (< 0.028)
[2021-08-07 06:39] LABS: Troponin I Less than 0.010 ng/mL (< 0.028)
[2021-08-07] MEDS ORDERED: HumaLOG 300 UNITS/3 ML VIAL SC PRN (07:26)
[2021-08-07] MEDS ORDERED: Nitroglycerin 0.4 MG TAB (25 Tab Bottle) SL PRN (07:26)
[2021-08-07] MEDS ORDERED: Dextrose 5% in Water 1,000 ML IV PRN (07:26)
[2021-08-07] MEDS ORDERED: Dextrose 50% Abboject 50 ML SYRINGE SLOW IVP PRN (07:26)
[2021-08-07] MEDS ORDERED: Acetaminophen 325 MG TAB PO PRN (07:26)
[2021-08-07] MEDS ORDERED: Albuterol Sulfate 2.5 mg/3 ml Neb NEB PRN (07:32)
[2021-08-07] MEDS ORDERED: Metoclopramide HCl 10 MG/2 ML VIAL IVP PRN (07:39)
[2021-08-07] MEDS ORDERED: Morphine 4 MG/ML VIAL ONE ×2 (07:47→15:40)
[2021-08-07] MEDS ORDERED: Metoclopramide HCl 10 MG/2 ML VIAL ONE (07:47)
[2021-08-07] MEDS ORDERED: Aspirin Chewable 81 MG TAB ONE (07:47)
[2021-08-07] MEDS ORDERED: Albuterol 200 PUFF (6.7GM INHALER) INH PRN (08:00)
[2021-08-07] MEDS: Sodium Chloride 0.9% 1,000 ML IV SCH ×2 (08:11→17:44)
[2021-08-07] MEDS: Morphine 4 MG/ML VIAL SLOW IVP PRN (08:14)
[2021-08-07] MEDS ORDERED: Aspirin Chewable 81 MG TAB PO SCH (09:00)
[2021-08-07] MEDS: Clindamycin/D5W 600 MG in Premix Bag 1 BAG IVPB SCH ×3 (11:00→20:21)
[2021-08-07] MEDS: Gabapentin 100 MG CAP PO SCH ×3 (11:01→20:21)
[2021-08-07 12:31] LABS: SARS-CoV-2 PCR by NAA Not Detected (NotDetected)
[2021-08-07] MEDS ORDERED: Clindamycin/D5W 600 mg/50 ml Premix Bag ONE (15:39)
[2021-08-07 16:09] VITALS: BMI 36.6
[2021-08-07] MEDS: HumaLOG 300 UNITS/3 ML VIAL SC PRN (17:28)
[2021-08-07] MEDS: Mupirocin 2% Ointment 22 GM Tube TOP SCH (20:22)
[2021-08-07] MEDS ORDERED: Atorvastatin Calcium 40 MG TAB PO SCH (21:00)
[2021-08-08] MEDS: Morphine 4 MG/ML VIAL SLOW IVP PRN (00:58)
[2021-08-08] MEDS: Clindamycin/D5W 600 MG in Premix Bag 1 BAG IVPB SCH ×2 (00:58→09:13)
[2021-08-08] MEDS: Sodium Chloride 0.9% 1,000 ML IV SCH (04:31)
[2021-08-08] MEDS: HumaLOG 300 UNITS/3 ML VIAL SC PRN (05:19)
[2021-08-08 05:46] LABS: Anion Gap 11 mmol/L (10-20); BUN (Urea Nitrogen) 13 mg/dL (7.0-18.7); Calc. Creatinine Clearance 198 mL/min (70-130); Calcium 8.3 mg/dL (7.8-10.44); Carbon Dioxide 23 mmol/L (22-29); Chloride 103 mmol/L (98-107); Glucose 270 mg/dL (70-105); Potassium 3.9 mmol/L (3.5-5.1); Sodium 133 mmol/L (136-145)
[2021-08-08 05:55] LABS: #Basophils 0.1 thou/uL (0.0-0.2); #Eosinphils 0.4 thou/uL (0.0-0.7); #Lymphocytes 3.5 thou/uL (1.20-3.40); #Monocytes 0.7 thou/uL (0.11-0.59); #Neutrophils 3.8 thou/uL (1.40-6.50); %Basophils 0.7 % (0.0-1.0); %Eosinophils 4.4 % (0.0-10.0); %Monocytes 8.3 % (0.0-10.0); %Neutrophils 44.6 % (42.0-75.0); Hemoglobin 12.4 g/dL (12.0-16.0); Mean Corpuscular HGB CONC 33.1 g/dL (32.0-36.0); Mean Corpuscular Hemoglobin 31.8 pg (27.0-31.0); Mean Platelet Volume 7.3 fL (7.4-10.4); Platelet Count 283 thou/uL (130-400); RBC Distribution Width 11.1 % (11.5-14.5); White Blood Cell (WBC) Count 8.4 thou/uL (4.8-10.8)
[2021-08-08] MEDS ORDERED: glipiZIDE 5 MG TAB PO SCH (07:30)
[2021-08-08] MEDS ORDERED: metFORMIN 500 MG TAB PO SCH (08:00)
[2021-08-08] MEDS ORDERED: Aspirin 81 mg Enteric Coated Tablet PO SCH (09:00)
[2021-08-08] MEDS: Gabapentin 100 MG CAP PO SCH (09:12)
[2021-08-08] MEDS: Mupirocin 2% Ointment 22 GM Tube TOP SCH (09:13)
[2021-08-08 12:30] VITALS: BP 130/72; TEMP 97.9
== END 2021-08-08 14:31 | disposition home or self-care (01) ==
LOC: ERS 22:50 → ERHOLD 08-07 02:26 → 2NO 08-07 16:21
PROVIDERS: ADMIT Student in an Organized Health Care Education/Training Program; ATTEND Internal Medicine
DX: R07.89 Other chest pain (principal); J34.0 Abscess, furuncle and carbuncle of nose; E11.9 Type 2 diabetes mellitus without complications; E78.5 Hyperlipidemia, unspecified; E87.1 Hypo-osmolality and hyponatremia; I11.9 Hypertensive heart disease without heart failure; J45.909 Unspecified asthma, uncomplicated; E66.9 Obesity, unspecified; Z68.36 Body mass index [BMI] 36.0-36.9, adult; Z79.4 Long term (current) use of insulin; Z79.82 Long term (current) use of aspirin; Z79.84 Long term (current) use of oral hypoglycemic drugs; Z79.899 Other long term (current) drug therapy; Z20.822 Contact with and (suspected) exposure to COVID-19
CPT/HCPCS: 36415; 36416; 71045; 78452; 80048; 80053; 83036; 84484; 85025; 93005; 93017; 93306; 96374; 96375; 96376; A9500; G0378; J1815; J1885; J2270; J2765; J3490; J7050; U0003; U0005

== ENCOUNTER 2022-09-28 11:13 | Emergency (ER) | payer SELFPAY ==
[2022-09-28] MEDS ORDERED: Morphine 4 MG/ML VIAL ONE (11:35)
[2022-09-28] MEDS ORDERED: Ondansetron PF 4 MG/2 ML Vial ONE (11:35)
[2022-09-28] MEDS ORDERED: Acetaminophen 500 MG TAB ONE (11:35)
[2022-09-28 11:55] LABS: #Basophils 0.1 thou/uL (0.0-0.2); #Eosinphils 0.2 thou/uL (0.0-0.7); #Lymphocytes 2.4 thou/uL (1.20-3.40); #Monocytes 0.9 thou/uL (0.11-0.59); #Neutrophils 9.5 thou/uL (1.40-6.50); %Basophils 0.4 % (0.0-1.0); %Eosinophils 1.3 % (0.0-10.0); %Lymphocytes 18.3 % (21.0-51.0); %Monocytes 6.6 % (0.0-10.0); %Neutrophils 73.4 % (42.0-75.0); Hemoglobin 14.5 g/dL (12.0-16.0); Mean Corpuscular HGB CONC 32.9 g/dL (32.0-36.0); Mean Corpuscular Hemoglobin 31.1 pg (27.0-31.0); Mean Corpuscular Volume 94.4 fl (78.0-98.0); Mean Platelet Volume 7.1 fL (7.4-10.4); Platelet Count 312 10x3/uL (130-400); RBC Distribution Width 11.5 % (11.5-14.5); Red Blood Cell (RBC) Count 4.68 mill/uL (4.20-5.40)
[2022-09-28 12:03] LABS: BHCG - Serum Negative (NEGATIVE); Pregs Control Background? CLEAR/WHITE (CLR/WHITE); Pregs Control Bar Appear? YES (CONTROL BAR)
[2022-09-28 12:13] LABS: ALT (SGPT) 16 U/L (8-55); AST (SGOT) 11 U/L (5-34); Albumin 3.8 g/dL (3.5-5.0); Alkaline Phosphatase 61 U/L (40-110); Anion Gap 15 mmol/L (10-20); BUN (Urea Nitrogen) 11 mg/dL (7.0-18.7); Calc. Creatinine Clearance 0 mL/min (70-130); Calcium 8.8 mg/dL (7.8-10.44); Carbon Dioxide 21 mmol/L (22-29); Chloride 99 mmol/L (98-107); Estimated GFR 102; Globulin 4.1 g/dL (2.4-3.5); Glucose 322 mg/dL (70-105); Potassium 4.1 mmol/L (3.5-5.1); Protein, Total 7.9 g/dL (6.0-8.3); Sodium 131 mmol/L (136-145)
[2022-09-28 13:36] LABS: Bacteria/HPF 3+ HPF (None Seen); Bilirubin Negative (Negative); Blood, Urine 2+ (Negative); Glucose, Urine (Dipstick) Greater than 1000 mg/dL (Negative); Ketone, Urine 80 mg/dL (Negative); Leukocyte 500 Leu/uL (Negative); Nitrite 1+ (Negative); Protein, Urine (Dipstick) 50 mg/dL (Neg-Trace); RBC/HPF Greater than 50 HPF (0-3); Urobilinogen Normal mg/dL (Less than 2); WBC/HPF Greater than 50 HPF (0-3)
[2022-09-28 13:38] LABS: Clarity Cloudy (Clear); Specific Gravity, Urine Greater than 1.060 (1.002-1.036)
[2022-09-28] MEDS ORDERED: ISOVUE-370 76%-LOCM 1 ML ONE (15:25)
== END 2022-09-28 14:25 | disposition home or self-care (01) ==
LOC: ERS 11:13
DX: N12 Tubulo-interstitial nephritis, not specified as acute or chronic (principal); R81 Glycosuria; D72.829 Elevated white blood cell count, unspecified; E78.5 Hyperlipidemia, unspecified; E11.9 Type 2 diabetes mellitus without complications; Z79.84 Long term (current) use of oral hypoglycemic drugs; Z79.899 Other long term (current) drug therapy; Z79.82 Long term (current) use of aspirin; Z79.4 Long term (current) use of insulin
CPT/HCPCS: 36415; 36416; 71045; 74177; 80053; 81003; 81015; 84443; 84484; 84703; 85025; 87077; 87086; 87186; 93005; 96374; 96375; J2270; J2405; Q9966

== ENCOUNTER 2022-09-29 08:46 | Emergency (ER) | payer SELFPAY ==
[2022-09-29] MEDS ORDERED: Cefepime 2 GM VIAL ONE (09:05)
[2022-09-29] MEDS ORDERED: Morphine 2 MG/ML VIAL ONE (09:05)
[2022-09-29] MEDS ORDERED: Ondansetron PF 4 MG/2 ML Vial ONE (09:05)
[2022-09-29 10:04] LABS: ALT (SGPT) 282 U/L (8-55); AST (SGOT) 170 U/L (5-34); Albumin 3.8 g/dL (3.5-5.0); Alkaline Phosphatase 112 U/L (40-110); Anion Gap 18 mmol/L (10-20); BUN (Urea Nitrogen) 11 mg/dL (7.0-18.7); Bilirubin, Total 1.1 mg/dL (0.2-1.2); Calc. Creatinine Clearance 0 mL/min (70-130); Calcium 8.7 mg/dL (7.8-10.44); Carbon Dioxide 19 mmol/L (22-29); Chloride 101 mmol/L (98-107); Estimated GFR 103; Globulin 4.1 g/dL (2.4-3.5); Glucose 275 mg/dL (70-105); Potassium 3.8 mmol/L (3.5-5.1); Protein, Total 7.9 g/dL (6.0-8.3); Sodium 134 mmol/L (136-145)
[2022-09-29 10:09] LABS: #Eosinphils 0.2 thou/uL (0.0-0.7); #Lymphocytes 2.3 thou/uL (1.20-3.40); #Monocytes 0.8 thou/uL (0.11-0.59); #Neutrophils 7.5 thou/uL (1.40-6.50); %Basophils 0.3 % (0.0-1.0); %Eosinophils 1.9 % (0.0-10.0); %Lymphocytes 21.4 % (21.0-51.0); %Monocytes 7.4 % (0.0-10.0); %Neutrophils 69.1 % (42.0-75.0); Hemoglobin 14.2 g/dL (12.0-16.0); Mean Corpuscular HGB CONC 32.7 g/dL (32.0-36.0); Mean Corpuscular Hemoglobin 31.3 pg (27.0-31.0); Mean Corpuscular Volume 95.5 fl (78.0-98.0); Mean Platelet Volume 7.8 fL (7.4-10.4); Platelet Count 306 10x3/uL (130-400); RBC Distribution Width 11.5 % (11.5-14.5); Red Blood Cell (RBC) Count 4.55 mill/uL (4.20-5.40); White Blood Cell (WBC) Count 10.9 10x3/uL (4.8-10.8)
== END 2022-09-29 11:24 | disposition home or self-care (01) ==
LOC: ERS 08:46
DX: N39.0 Urinary tract infection, site not specified (principal); E11.9 Type 2 diabetes mellitus without complications; J45.909 Unspecified asthma, uncomplicated; E78.5 Hyperlipidemia, unspecified; Z79.82 Long term (current) use of aspirin; Z79.84 Long term (current) use of oral hypoglycemic drugs; Z79.4 Long term (current) use of insulin
CPT/HCPCS: 36415; 80053; 83605; 85025; 87040; 96365; 96375; J0692; J2272; J2405

== ENCOUNTER 2023-02-11 20:05 | Emergency (ER) | payer OTHER ==
[2023-02-11] MEDS ORDERED: Ketorolac Tromethamine 30 MG/ML VIAL ONE (20:51)
[2023-02-11 21:05] LABS: %Basophils 0.4 % (0.0-1.0); %Eosinophils 2.3 % (0.0-10.0); %Lymphocytes 31.9 % (21.0-51.0); Hemoglobin 13.8 g/dL (12.0-16.0); Mean Corpuscular HGB CONC 33.9 g/dL (32.0-36.0); Mean Corpuscular Hemoglobin 30.6 pg (27.0-31.0); Mean Corpuscular Volume 90.2 fl (78.0-98.0); Mean Platelet Volume 9.6 fL (7.4-10.4); Platelet Count 342 10x3/uL (130-400); RBC Distribution Width 11.9 % (11.5-14.5); Red Blood Cell (RBC) Count 4.51 mill/uL (4.20-5.40); White Blood Cell (WBC) Count 8.2 10x3/uL (4.8-10.8)
[2023-02-11 21:06] LABS: #Eosinphils 0.2 thou/uL (0.0-0.7); #Monocytes 0.7 thou/uL (0.11-0.59); #Neutrophils 4.6 thou/uL (1.40-6.50)
[2023-02-11 22:11] LABS: Anion Gap 13 mmol/L (10-20); BUN (Urea Nitrogen) 15 mg/dL (7.0-18.7); Calc. Creatinine Clearance 0 mL/min (70-130); Carbon Dioxide 25 mmol/L (22-29); Chloride 98 mmol/L (98-107); Potassium 4.2 mmol/L (3.5-5.1); Sodium 132 mmol/L (136-145)
[2023-02-11 22:12] LABS: ALT (SGPT) 18 U/L (8-55); AST (SGOT) 14 U/L (5-34); Albumin 3.6 g/dL (3.5-5.0); Alkaline Phosphatase 77 U/L (40-110); Bilirubin, Total 0.3 mg/dL (0.2-1.2); Calcium 8.8 mg/dL (7.8-10.44); Estimated GFR 93; Globulin 4.6 g/dL (2.4-3.5); Glucose 343 mg/dL (70-105); Magnesium 1.6 mg/dL (1.6-2.6); Protein, Total 8.2 g/dL (6.0-8.3)
== END 2023-02-11 22:47 | disposition home or self-care (01) ==
LOC: ERS 20:05
DX: M79.672 Pain in left foot (principal); M79.671 Pain in right foot; E11.65 Type 2 diabetes mellitus with hyperglycemia; E78.5 Hyperlipidemia, unspecified
CPT/HCPCS: 36416; 80053; 82010; 83605; 83735; 85025; 96374; J1885

== ENCOUNTER 2023-02-20 08:28 | Observation (INO) | payer OTHER ==
[2023-02-20] MEDS ORDERED: Ondansetron PF 4 MG/2 ML Vial ONE (08:59)
[2023-02-20] MEDS ORDERED: Aspirin Chewable 81 MG TAB ONE (08:59)
[2023-02-20 09:07] LABS: #Eosinphils 0.2 thou/uL (0.0-0.7); #Monocytes 0.6 thou/uL (0.11-0.59); #Neutrophils 4.5 thou/uL (1.40-6.50); %Basophils 0.6 % (0.0-1.0); %Eosinophils 2.6 % (0.0-10.0); %Lymphocytes 24.1 % (21.0-51.0); %Monocytes 8.5 % (0.0-10.0); %Neutrophils 63.9 % (42.0-75.0); Hematocrit 40.1 % (36.0-47.0); Hemoglobin 13.5 g/dL (12.0-16.0); Mean Corpuscular HGB CONC 33.7 g/dL (32.0-36.0); Mean Corpuscular Hemoglobin 30.2 pg (27.0-31.0); Mean Corpuscular Volume 89.7 fl (78.0-98.0); Mean Platelet Volume 9.2 fL (7.4-10.4); Platelet Count 313 10x3/uL (130-400); RBC Distribution Width 11.9 % (11.5-14.5); Red Blood Cell (RBC) Count 4.47 mill/uL (4.20-5.40)
[2023-02-20 09:29] LABS: ALT (SGPT) 15 U/L (8-55); AST (SGOT) 13 U/L (5-34); Albumin 3.5 g/dL (3.5-5.0); Alkaline Phosphatase 72 U/L (40-110); Anion Gap 14 mmol/L (10-20); BUN (Urea Nitrogen) 11 mg/dL (7.0-18.7); Bilirubin, Total 0.4 mg/dL (0.2-1.2); Calc. Creatinine Clearance 0 mL/min (70-130); Calcium 8.8 mg/dL (7.8-10.44); Carbon Dioxide 23 mmol/L (22-29); Chloride 97 mmol/L (98-107); Estimated GFR 91; Globulin 4.4 g/dL (2.4-3.5); Lipase 21 U/L (8-78); Potassium 4.1 mmol/L (3.5-5.1); Protein, Total 7.9 g/dL (6.0-8.3); Sodium 130 mmol/L (136-145)
[2023-02-20 09:36] LABS: Glucose 424 mg/dL (70-105)
[2023-02-20] MEDS ORDERED: Iopamidol-370 76% 500 ML MDV (1 ML CHARGE) ONE (10:13)
[2023-02-20] MEDS ORDERED: Nitroglycerin 0.4 MG TAB 1 EACH ONE (10:44)
[2023-02-20 11:01] LABS: BHCG - Serum Negative (NEGATIVE); Pregs Control Background? CLEAR/WHITE (CLR/WHITE); Pregs Control Bar Appear? YES (CONTROL BAR)
[2023-02-20] MEDS ORDERED: Acetaminophen 325 MG TAB PO PRN (11:45)
[2023-02-20 12:10] LABS: Bacteria/HPF None Seen HPF (None Seen); Bilirubin Negative (Negative); Blood, Urine Negative (Negative); CAUTI Indications for Culture Dysuria,urgency,freq; Clarity Clear (Clear); Glucose, Urine (Dipstick) Greater than 1000 mg/dL (Negative); Ketone, Urine Negative (Negative); Leukocyte Negative Leu/uL (Negative); Nitrite Negative (Negative); Protein, Urine (Dipstick) Negative (Neg-Trace); RBC/HPF 0-3 HPF (0-3); Specific Gravity, Urine 1.047 (1.002-1.036); Squamous Epithelial 0-3 HPF (0-3); Urobilinogen Normal mg/dL (Less than 2); WBC/HPF 0-3 HPF (0-3)
[2023-02-20 12:12] LABS: Urine Culture Reflex No No
[2023-02-20] MEDS ORDERED: hydrALAZINE 20 MG/ML VIAL SLOW IVP PRN (12:36)
[2023-02-20] MEDS ORDERED: Ondansetron PF 4 MG/2 ML Vial IVP PRN ×2 (12:36→15:00)
[2023-02-20] MEDS ORDERED: Dextrose 5% in Water 1,000 ML IV PRN (12:36)
[2023-02-20] MEDS ORDERED: Ondansetron ODT 4 MG TAB PO PRN (12:36)
[2023-02-20] MEDS ORDERED: Nitroglycerin 0.4 MG TAB (25 Tab Bottle) SL PRN ×2 (12:36→15:21)
[2023-02-20] MEDS ORDERED: Dextrose 50% Abboject 50 ML SYRINGE SLOW IVP PRN (12:36)
[2023-02-20] MEDS ORDERED: HumaLOG 300 UNITS/3 ML VIAL SC PRN ×2 (12:36)
[2023-02-20] MEDS ORDERED: Acetaminophen 500 MG TAB PO PRN (12:36)
[2023-02-20] MEDS ORDERED: Glucagon 1 MG/ML KIT IM PRN (12:36)
[2023-02-20 12:49] LABS: Troponin I Less than 0.010 ng/mL (< 0.028)
[2023-02-20] MEDS ORDERED: Midazolam HCl 2 mg/2 ml Vial ONE ×2 (13:36→14:06)
[2023-02-20] MEDS ORDERED: fentaNYL 50 mcg/mL 1 mL Vial ONE ×2 (13:36→14:06)
[2023-02-20] MEDS ORDERED: Lidocaine 1% (PF) 30 ML VIAL ONE ×2 (13:37→14:06)
[2023-02-20] MEDS ORDERED: Heparin 10,000 UNITS/ 10 ML VIAL ONE ×2 (13:37→14:06)
[2023-02-20] MEDS ORDERED: Nitroglycerin 2% Ointment 1 INCH/1 GM Packet ONE (13:37)
[2023-02-20] MEDS ORDERED: Adenosine 6 MG/2 ML VIAL ONE ×2 (13:37→14:06)
[2023-02-20] MEDS ORDERED: Nitroglycerin 50 MG/250 ML BOT 0 ML ONE ×2 (13:37→14:06)
[2023-02-20] MEDS ORDERED: Verapamil 5 MG/2 ML VIAL ONE ×2 (13:37→14:06)
[2023-02-20] MEDS ORDERED: Nitroglycerin 50 MG/250 ML BOT 250 ML ONE (14:07)
[2023-02-20] MEDS ORDERED: Ondansetron ODT 4 MG TAB SL PRN (15:00)
[2023-02-20] MEDS ORDERED: Sodium Chloride 0.9% 200 ML IV PRN (15:21)
[2023-02-20] MEDS ORDERED: Acetaminophen/Codeine 30-300mg Tablet PO PRN ×2 (15:21)
[2023-02-20] MEDS ORDERED: Sodium Chloride 0.9% 1,000 ML IV SCH (15:30)
[2023-02-20 20:05] VITALS: BMI 36.0
[2023-02-20] MEDS: Insulin NPH Human Isophane 100 UNITS/ML (10 ML VIAL) SQ SCH (22:04)
[2023-02-20] MEDS: Gabapentin 300 MG CAP PO SCH (22:04)
[2023-02-21 04:56] LABS: Hemoglobin A1c 11.8 % (4.0-6.0)
[2023-02-21 05:16] LABS: Cardiac Risk 9.9 (Less than 4.5)
[2023-02-21] MEDS ORDERED: glipiZIDE 10 MG TAB PO SCH (07:30)
[2023-02-21 08:03] VITALS: BP 144/82; TEMP 97.6
[2023-02-21] MEDS: Insulin NPH Human Isophane 100 UNITS/ML (10 ML VIAL) SQ SCH (08:39)
[2023-02-21] MEDS: Gabapentin 300 MG CAP PO SCH (08:40)
[2023-02-21] MEDS ORDERED: Aspirin Chewable 81 MG TAB PO SCH (09:00)
[2023-02-21] MEDS ORDERED: Atorvastatin Calcium 20 MG TAB PO SCH (09:00)
[2023-02-22] MEDS ORDERED: Iopamidol 370 76% 100 ML VIAL ONE (08:32)
== END 2023-02-21 10:37 | disposition home or self-care (01) ==
LOC: ERS 08:28 → ERHOLD 12:01 → 2SW 15:02
PROVIDERS: ADMIT Family Medicine; ATTEND Family Medicine
DX: I25.119 Atherosclerotic heart disease of native coronary artery with unspecified angina pectoris (principal); E11.42 Type 2 diabetes mellitus with diabetic polyneuropathy; E11.65 Type 2 diabetes mellitus with hyperglycemia; E78.5 Hyperlipidemia, unspecified; E87.1 Hypo-osmolality and hyponatremia; Z79.84 Long term (current) use of oral hypoglycemic drugs; Z79.82 Long term (current) use of aspirin; Z79.899 Other long term (current) drug therapy; Z90.710 Acquired absence of both cervix and uterus; Z90.49 Acquired absence of other specified parts of digestive tract
CPT/HCPCS: 36415; 36416; 71045; 71275; 80053; 80061; 81001; 83036; 83690; 83880; 84484; 84703; 85025; 85379; 93005; 93458; 94760; 99152; C1769; C1894; G0378; J0153; J1644; J1815; J2001; J2250; J2405; J3010; J7050; Q9967

== ENCOUNTER 2023-03-05 17:36 | Emergency (ER) | payer OTHER ==
[2023-03-05] MEDS ORDERED: Proparacaine 0.5% Opth 15 ML BOT ONE ×2 (17:48→17:52)
[2023-03-05] MEDS ORDERED: Ketorolac Tromethamine 30 MG/ML VIAL ONE (18:07)
== END 2023-03-05 19:40 | disposition home or self-care (01) ==
LOC: ERS 17:36
DX: H57.12 Ocular pain, left eye (principal); H53.132 Sudden visual loss, left eye; I10 Essential (primary) hypertension; E11.9 Type 2 diabetes mellitus without complications; E78.5 Hyperlipidemia, unspecified; Z79.84 Long term (current) use of oral hypoglycemic drugs
CPT/HCPCS: 96372; 99283; J1885

== ENCOUNTER 2023-05-27 02:01 | Emergency (ER) | payer OTHER ==
[2023-05-27 02:41] LABS: #Eosinphils 0.3 thou/uL (0.0-0.7); #Monocytes 0.6 thou/uL (0.11-0.59); #Neutrophils 4.7 thou/uL (1.40-6.50); %Basophils 0.4 % (0.0-1.0); %Eosinophils 2.8 % (0.0-10.0); %Lymphocytes 40.7 % (21.0-51.0); %Monocytes 6.5 % (0.0-10.0); %Neutrophils 49.4 % (42.0-75.0); Hematocrit 40.1 % (36.0-47.0); Hemoglobin 13.7 g/dL (12.0-16.0); Mean Corpuscular HGB CONC 34.2 g/dL (32.0-36.0); Mean Corpuscular Hemoglobin 30.6 pg (27.0-31.0); Mean Corpuscular Volume 89.7 fl (78.0-98.0); Mean Platelet Volume 9.7 fL (7.4-10.4); Platelet Count 276 10x3/uL (130-400); RBC Distribution Width 12.6 % (11.5-14.5); Red Blood Cell (RBC) Count 4.47 mill/uL (4.20-5.40); White Blood Cell (WBC) Count 9.4 10x3/uL (4.8-10.8)
[2023-05-27] MEDS ORDERED: Ondansetron PF 4 MG/2 ML Vial ONE (02:45)
[2023-05-27] MEDS ORDERED: Morphine 4 MG/ML VIAL ONE ×3 (02:45→03:32)
[2023-05-27] MEDS ORDERED: Aspirin Chewable 81 MG TAB ONE (02:46)
[2023-05-27 03:03] LABS: ALT (SGPT) 44 U/L (8-55); AST (SGOT) 90 U/L (5-34); Albumin 3.9 g/dL (3.5-5.0); Alkaline Phosphatase 81 U/L (40-110); Anion Gap 15 mmol/L (10-20); BUN (Urea Nitrogen) 16 mg/dL (7.0-18.7); Bilirubin, Total 0.5 mg/dL (0.2-1.2); Calc. Creatinine Clearance 0 mL/min (70-130); Calcium 9.7 mg/dL (7.8-10.44); Carbon Dioxide 23 mmol/L (22-29); Chloride 100 mmol/L (98-107); Estimated GFR 91; Globulin 3.7 g/dL (2.4-3.5); Glucose 376 mg/dL (70-105); Potassium 4.1 mmol/L (3.5-5.1); Protein, Total 7.6 g/dL (6.0-8.3); Sodium 134 mmol/L (136-145)
[2023-05-27 03:19] LABS: Lipase 45 U/L (8-78); Magnesium 1.7 mg/dL (1.6-2.6)
[2023-05-27] MEDS ORDERED: Ketorolac Tromethamine 30 MG/ML VIAL ONE (05:32)
[2023-05-27 07:10] LABS: Troponin I Less than 0.010 ng/mL (< 0.028)
[2023-05-27] MEDS ORDERED: Iopamidol 370 76% 100 ML VIAL ONE (10:54)
== END 2023-05-27 07:52 | disposition home or self-care (01) ==
LOC: ERS 02:01
DX: I27.20 Pulmonary hypertension, unspecified (principal); R07.89 Other chest pain; I10 Essential (primary) hypertension; E11.9 Type 2 diabetes mellitus without complications; E78.5 Hyperlipidemia, unspecified; Z79.84 Long term (current) use of oral hypoglycemic drugs; Z79.899 Other long term (current) drug therapy
CPT/HCPCS: 36415; 71045; 71275; 80053; 83690; 83735; 84484; 85025; 93005; 96374; 96375; 96376; J1885; J2270; J2405; Q9967

== ENCOUNTER 2023-05-29 09:38 | Observation (INO) | payer OTHER ==
[2023-05-29] MEDS ORDERED: Nitroglycerin 2% Ointment 1 INCH/1 GM Packet ONE (10:05)
[2023-05-29] MEDS ORDERED: Aspirin Chewable 81 MG TAB ONE (10:05)
[2023-05-29 10:37] LABS: #Eosinphils 0.2 thou/uL (0.0-0.7); #Monocytes 0.5 thou/uL (0.11-0.59); #Neutrophils 4.4 thou/uL (1.40-6.50); %Basophils 0.4 % (0.0-1.0); %Eosinophils 2.8 % (0.0-10.0); %Lymphocytes 32.1 % (21.0-51.0); %Monocytes 6.6 % (0.0-10.0); Hematocrit 40.8 % (36.0-47.0); Hemoglobin 13.7 g/dL (12.0-16.0); Mean Corpuscular HGB CONC 33.6 g/dL (32.0-36.0); Mean Corpuscular Hemoglobin 30.5 pg (27.0-31.0); Mean Corpuscular Volume 90.9 fl (78.0-98.0); Mean Platelet Volume 9.6 fL (7.4-10.4); Platelet Count 282 10x3/uL (130-400); RBC Distribution Width 12.7 % (11.5-14.5); Red Blood Cell (RBC) Count 4.49 mill/uL (4.20-5.40); White Blood Cell (WBC) Count 7.6 10x3/uL (4.8-10.8)
[2023-05-29 11:02] LABS: ALT (SGPT) 178 U/L (8-55); AST (SGOT) 34 U/L (5-34); Albumin 4.1 g/dL (3.5-5.0); Alkaline Phosphatase 76 U/L (40-110); Anion Gap 15 mmol/L (10-20); BUN (Urea Nitrogen) 13 mg/dL (7.0-18.7); Bilirubin, Total 0.4 mg/dL (0.2-1.2); Calc. Creatinine Clearance 0 mL/min (70-130); Calcium 9.5 mg/dL (7.8-10.44); Carbon Dioxide 24 mmol/L (22-29); Chloride 100 mmol/L (98-107); Estimated GFR 91; Globulin 3.8 g/dL (2.4-3.5); Glucose 355 mg/dL (70-105); Lipase 46 U/L (8-78); Potassium 4.4 mmol/L (3.5-5.1); Protein, Total 7.9 g/dL (6.0-8.3); Sodium 135 mmol/L (136-145)
[2023-05-29 11:05] LABS: Troponin I Less than 0.010 ng/mL (< 0.028)
[2023-05-29 14:08] LABS: Troponin I Less than 0.010 ng/mL (< 0.028)
[2023-05-29] MEDS ORDERED: Ondansetron ODT 4 MG TAB PO PRN (14:08)
[2023-05-29] MEDS ORDERED: Ketorolac Tromethamine 30 MG/ML VIAL IVP SCH (14:10)
[2023-05-29 15:29] VITALS: BMI 33.5
[2023-05-29 16:59] LABS: Troponin I Less than 0.010 ng/mL (< 0.028)
[2023-05-29] MEDS ORDERED: DULoxetine 30 MG CAP PO SCH (17:15)
[2023-05-29] MEDS ORDERED: Lisinopril 10 MG TAB PO SCH (17:15)
[2023-05-29] MEDS ORDERED: Glucagon 1 MG/ML KIT IM PRN (17:27)
[2023-05-29] MEDS ORDERED: Dextrose 5% in Water 1,000 ML IV PRN (17:27)
[2023-05-29] MEDS ORDERED: Dextrose 50% Abboject 50 ML SYRINGE SLOW IVP PRN (17:27)
[2023-05-29] MEDS ORDERED: Lidocaine 4% Patch TD SCH ×2 (18:00→20:00)
[2023-05-29] MEDS: Insulin Regular 300 UNITS/3 ML VIAL SC PRN ×2 (18:18→22:29)
[2023-05-29] MEDS ORDERED: Insulin Glargine 30 UNITS/0.3 ML VIAL SC SCH ×3 (18:45→21:00)
[2023-05-29] MEDS: Gabapentin 300 MG CAP PO SCH (20:11)
[2023-05-29] MEDS: Acetaminophen 325 MG TAB PO PRN (20:15)
[2023-05-29] MEDS ORDERED: Atorvastatin Calcium 40 MG TAB PO SCH (21:00)
[2023-05-30 04:27] LABS: #Eosinphils 0.3 thou/uL (0.0-0.7); #Monocytes 0.9 thou/uL (0.11-0.59); #Neutrophils 5.6 thou/uL (1.40-6.50); %Basophils 0.3 % (0.0-1.0); %Eosinophils 2.9 % (0.0-10.0); %Lymphocytes 28.3 % (21.0-51.0); %Monocytes 9.7 % (0.0-10.0); %Neutrophils 58.6 % (42.0-75.0); Hematocrit 36.9 % (36.0-47.0); Hemoglobin 12.1 g/dL (12.0-16.0); Mean Corpuscular HGB CONC 32.8 g/dL (32.0-36.0); Mean Corpuscular Hemoglobin 30.3 pg (27.0-31.0); Mean Corpuscular Volume 92.3 fl (78.0-98.0); Mean Platelet Volume 9.8 fL (7.4-10.4); Platelet Count 260 10x3/uL (130-400); RBC Distribution Width 12.6 % (11.5-14.5); White Blood Cell (WBC) Count 9.6 10x3/uL (4.8-10.8)
[2023-05-30 04:57] LABS: ALT (SGPT) 110 U/L (8-55); AST (SGOT) 20 U/L (5-34); Albumin 3.6 g/dL (3.5-5.0); Alkaline Phosphatase 67 U/L (40-110); Anion Gap 12 mmol/L (10-20); BUN (Urea Nitrogen) 20 mg/dL (7.0-18.7); Bilirubin, Total 0.4 mg/dL (0.2-1.2); Calc. Creatinine Clearance 152 mL/min (70-130); Calcium 9.1 mg/dL (7.8-10.44); Carbon Dioxide 25 mmol/L (22-29); Chloride 102 mmol/L (98-107); Estimated GFR 98; Globulin 3.3 g/dL (2.4-3.5); Glucose 277 mg/dL (70-105); Potassium 3.9 mmol/L (3.5-5.1); Protein, Total 6.9 g/dL (6.0-8.3); Sodium 135 mmol/L (136-145)
[2023-05-30] MEDS: Insulin Regular 300 UNITS/3 ML VIAL SC PRN (05:11)
[2023-05-30] MEDS: Acetaminophen 325 MG TAB PO PRN (05:15)
[2023-05-30] MEDS ORDERED: Acetaminophen 500 MG TAB PO SCH (08:00)
[2023-05-30] MEDS ORDERED: metFORMIN 500 MG TAB PO SCH (08:00)
[2023-05-30] MEDS ORDERED: Transdermal Patch Removal TOP SCH (08:00)
[2023-05-30] MEDS ORDERED: Diclofenac 25 MG TABDR...ER PO SCH (08:00)
[2023-05-30] MEDS: HumaLOG 300 UNITS/3 ML VIAL SC PRN ×2 (08:07→13:56)
[2023-05-30] MEDS: Gabapentin 300 MG CAP PO SCH (08:11)
[2023-05-30] MEDS ORDERED: DULoxetine 30 MG CAP PO SCH (09:00)
[2023-05-30] MEDS ORDERED: PARoxetine 20 MG TAB PO SCH (09:00)
[2023-05-30] MEDS ORDERED: Naproxen 500 MG TAB PO SCH (09:00)
[2023-05-30] MEDS ORDERED: Lisinopril 10 MG TAB PO SCH (09:00)
[2023-05-30] MEDS ORDERED: Lidocaine 2% Viscous Solution 10 ML, Aluminum & Magnesium Hydroxide 30 ML SSW SCH (10:00)
[2023-05-30 13:24] VITALS: BP 136/87; TEMP 97.9
[2023-05-30] MEDS ORDERED: Insulin Glargine 30 UNITS/0.3 ML VIAL SC SCH (21:00)
[2023-06-01] MEDS ORDERED: FLU VACC QS2023-24(6MOS UP)/PF 60 MCG/0.5 ML SYRINGE IM ONE (09:00)
== END 2023-05-30 14:17 | disposition home or self-care (01) ==
LOC: ERS 09:38 → ERHOLD 12:05 → 2SW 14:57
PROVIDERS: ADMIT Family Medicine; ATTEND Family Medicine
DX: M94.0 Chondrocostal junction syndrome [Tietze] (principal); E11.9 Type 2 diabetes mellitus without complications; I10 Essential (primary) hypertension; E78.5 Hyperlipidemia, unspecified; Z79.84 Long term (current) use of oral hypoglycemic drugs; Z79.899 Other long term (current) drug therapy; Z95.818 Presence of other cardiac implants and grafts
CPT/HCPCS: 36415; 36416; 71045; 71120; 80053; 83690; 84484; 85025; 93005; 96372; 96374; G0378; J1650; J1815; J1885

== ENCOUNTER 2023-09-04 09:03 | Outpatient (CLI) | payer MEDICARE, OTHER | END 2023-09-04 09:04 | disposition home or self-care (01) | LOC: BICMRI 09:03 | PROVIDERS: ATTEND Neurological Surgery | DX: M47.12 Other spondylosis with myelopathy, cervical region (principal); M50.022 Cervical disc disorder at C5-C6 level with myelopathy; M50.023 Cervical disc disorder at C6-C7 level with myelopathy | CPT/HCPCS: 72141 ==

== ENCOUNTER 2024-05-20 19:46 | Emergency (ER) | payer MEDICARE ==
[2024-05-20 21:00] LABS: #Basophils 0.04 10x3/uL (0.0-0.2); %Basophils 0.4 % (0.0-1.0); %Eosinophils 1.7 % (0.0-10.0); %Neutrophils 68.5 % (42.0-75.0); Hematocrit 42.6 % (36.0-47.0); Hemoglobin 13.9 g/dL (12.0-16.0); Mean Corpuscular HGB CONC 32.6 g/dL (32.0-36.0); Mean Corpuscular Hemoglobin 29.6 pg (27.0-31.0); Mean Corpuscular Volume 90.8 fL (78.0-98.0); Mean Platelet Volume 9.5 fL (7.4-10.4); Platelet Count 327 10x3/uL (130-400); RBC Distribution Width 12.3 % (11.5-14.5); Red Blood Cell (RBC) Count 4.69 mill/uL (4.20-5.40)
[2024-05-20 21:13] LABS: ALT (SGPT) 14 U/L (8-55); AST (SGOT) 11 U/L (5-34); Albumin 3.8 g/dL (3.5-5.0); Alkaline Phosphatase 50 U/L (40-110); Anion Gap 20 mmol/L (10-20); BUN (Urea Nitrogen) 13 mg/dL (7.0-18.7); Bilirubin, Total 0.5 mg/dL (0.2-1.2); Calc. Creatinine Clearance 0 mL/min (70-130); Calcium 9.5 mg/dL (7.8-10.44); Carbon Dioxide 21 mmol/L (22-29); Chloride 100 mmol/L (98-107); Estimated GFR 64; Globulin 4.2 g/dL (2.4-3.5); Glucose 300 mg/dL (70-105); Lipase 17 U/L (8-78); Potassium 3.7 mmol/L (3.5-5.1); Sodium 137 mmol/L (136-145)
[2024-05-20 21:20] LABS: Troponin I Less than 0.010 ng/mL (< 0.028)
[2024-05-20 22:21] LABS: Bilirubin Negative (Negative); Blood, Urine Negative (Negative); CAUTI Indications for Culture Dysuria,urgency,freq; Clarity Clear (Clear); Glucose, Urine (Dipstick) Greater than 1000 mg/dL (Negative); Ketone, Urine Negative (Negative); Leukocyte Negative Leu/uL (Negative); Nitrite Negative (Negative); Protein, Urine (Dipstick) 100 mg/dL (Neg-Trace); RBC/HPF 0-3 HPF (0-3); Specific Gravity, Urine 1.021 (1.002-1.036); Squamous Epithelial 0-3 HPF (0-3); Urobilinogen Normal mg/dL (Less than 2); pH, Urine 5.5 (5.0-9.0)
[2024-05-20 22:23] LABS: Bacteria/HPF Rare-Few HPF (None Seen); Urine Culture Reflex No No
[2024-05-20] MEDS ORDERED: Mag-Al 1200 mg/1200 mg/30 ML UDCUP ONE (22:37)
[2024-05-20] MEDS ORDERED: Pantoprazole 40 MG VIAL ONE (22:37)
[2024-05-20] MEDS ORDERED: Ondansetron PF 4 MG/2 ML Vial ONE (22:37)
[2024-05-20] MEDS ORDERED: Lidocaine Viscous Sol 2% 15 ml UD Cup ONE (22:37)
[2024-05-20 23:06] LABS: Actual Bicarbonate (HCO3v) 24.4 mEq/L (22-28); Base Excess -0.1 mEq/L (-2.0 to +3.0); Calcium, Ionized (venous) 1.11 mmol/L (1.16-1.32); Chloride (VBG) 100 mmol/L (98-106); Hematocrit-VBG 44 % (36.0-47.0); Hemoglobin (Hb) 15.1 g/dL (11.7-16.0); Potassium (VBG) 4.07 mmol/L (3.70-5.30); Sodium 138 mmol/L (133-146); pH (venous) 7.409 (7.32-7.43)
== END 2024-05-21 01:00 | disposition home or self-care (01) ==
LOC: ERS 19:46
DX: R11.2 Nausea with vomiting, unspecified (principal); R10.13 Epigastric pain; I10 Essential (primary) hypertension; E11.9 Type 2 diabetes mellitus without complications
CPT/HCPCS: 71045; 80053; 81001; 82010; 82805; 83690; 83880; 84484; 85025; 93005; J2405; J2470; 36415; 96374; 96375

== ENCOUNTER 2025-07-08 15:08 | Emergency (ER) | payer OTHER ==
[2025-07-08 16:58] LABS: #Basophils 0.05 10x3/uL (0.0-0.2); #Eosinophils 0.26 10x3/uL (0.0-0.7); #Monocytes 0.51 10x3/uL (0.11-0.59); #Neutrophils 4.45 10x3/uL (1.40-6.50); %Basophils 0.6 % (0.0-1.0); %Eosinophils 3.1 % (0.0-10.0); %Lymphocytes 36.1 % (21.0-51.0); %Monocytes 6.2 % (0.0-10.0); %Neutrophils 53.9 % (42.0-75.0); Hematocrit 40.5 % (36.0-47.0); Hemoglobin 13.2 g/dL (12.0-16.0); Mean Corpuscular Hemoglobin 29.6 pg (27.0-31.0); Mean Corpuscular Volume 90.8 fL (78.0-98.0); Platelet Count 315 10x3/uL (130-400); Red Blood Cell (RBC) Count 4.46 mill/uL (4.20-5.40); White Blood Cell (WBC) Count 8.26 10x3/uL (4.8-10.8)
[2025-07-08 17:16] LABS: Chloride 98 mmol/L (98-107); Potassium 4.3 mmol/L (3.5-5.1); Sodium 135 mmol/L (136-145)
[2025-07-08 17:17] LABS: Albumin 3.4 g/dL (3.1-4.5); Calcium 9.4 mg/dL (7.8-10.44)
[2025-07-08 17:18] LABS: Globulin 4.3 g/dL (2.4-3.5)
[2025-07-08 17:19] LABS: Anion Gap 17 mmol/L (10-20); Carbon Dioxide 24 mmol/L (22-29)
[2025-07-08 17:20] LABS: Alkaline Phosphatase 64 U/L (40-110); Bilirubin, Total 0.2 mg/dL (0.3-1.2)
[2025-07-08 17:21] LABS: Calc. Creatinine Clearance 0 mL/min (70-130)
[2025-07-08 17:22] LABS: BUN (Urea Nitrogen) 13 mg/dL (7.0-18.7)
[2025-07-08 17:23] LABS: ALT (SGPT) 8 U/L (Less than 34); AST (SGOT) 14 U/L (11-34)
[2025-07-08 17:30] LABS: Glucose 402 mg/dL (70-105)
== END 2025-07-08 18:12 ==
LOC: ERS 15:08
DX: Z53.21 Procedure and treatment not carried out due to patient leaving prior to being seen by health care provider (principal)
CPT/HCPCS: 36415; 80053; 85025; 86141